=== PATIENT | male | born 1945 | race Caucasian/White ===

== ENCOUNTER → 2016-09-15 | Outpatient (CLI) | payer BC ==
[~2016-09-15] MED LIST: METO50TA16 PO; MULT-506 PO; SIMV20TA2 PO; WHEAPOW13 PO
== END | disposition home or self-care (01) ==
LOC: C.LABBC 07:59
PROVIDERS: ATTEND Nurse Practitioner Family
DX: C61 Malignant neoplasm of prostate (principal)

== ENCOUNTER → 2017-01-05 | Outpatient (CLI) | payer BC ==
[2017-01-05 10:07] LABS: BASO ABS # 0.07 K/uL (0-0.2); COMPLETE YES; EOS % 4.8 %; IG% 0.1 %; LYMPH % 26.8 %; LYMPH ABS # 1.86 K/uL (1.2-3.4); MEAN CELL VOLUME 101.1 fL (80-100); MEAN CORPUSCULAR HEMOGLOBIN 33.5 pg (25-34); MEAN CORPUSCULAR HGB CONC 33.1 g/dl (32-36); MEAN PLATELET VOLUME 11.8 fL (7.4-10.4); MONO % 5.8 %; NEUT % 61.5 %; PLATELET COUNT 192 K/uL (130-400); RED BLOOD COUNT 4.75 M/uL (4.7-6.1); WHITE BLOOD COUNT 6.94 K/uL (4.8-10.8)
[2017-01-05 10:21] LABS: ALT/SGPT 25 U/L (12-78); BLOOD UREA NITROGEN 18 mg/dl (7-18); CARBON DIOXIDE 29 mmol/L (21-32); CHLORIDE 104 mmol/L (98-107); CHOLESTEROL 116 mg/dl (0-200); GLUCOSE 90 mg/dl (70-99); POTASSIUM 3.9 mmol/L (3.5-5.1); SODIUM 139 mmol/L (136-145)
[2017-01-05 10:32] LABS: ALB/GLOB RATIO 0.9 (0.9-2); ALKALINE PHOSPHATASE 74 U/L (45-117); AST/SGOT 21 U/L (15-37); CHOLESTEROL/HDL RATIO 3.7; HDL CHOLESTEROL 31 mg/dl; LDL CHOLESTEROL CALCULATED 58 mg/dl; TRIGLYCERIDES 137 mg/dl (0-150); VERY LOW DENSITY LIPOPROT CALC 27 mg/dl
== END | disposition home or self-care (01) ==
LOC: C.LAB1850 09:08
PROVIDERS: ATTEND Internal Medicine Pulmonary Disease
DX: Z00.00 Encounter for general adult medical examination without abnormal findings (principal); E78.5 Hyperlipidemia, unspecified; C61 Malignant neoplasm of prostate; C44.91 Basal cell carcinoma of skin, unspecified

== ENCOUNTER → 2017-01-19 | Outpatient (CLI) | payer BC | END | disposition home or self-care (01) | LOC: C.RDSM 15:21 | PROVIDERS: ATTEND Family Medicine Sports Medicine | DX: M54.5 Low back pain (principal) ==

== ENCOUNTER → 2017-09-08 | Outpatient (CLI) | payer BC | END | disposition home or self-care (01) | LOC: C.LABBC 07:32 | PROVIDERS: ATTEND Urology | DX: R39.9 Unspecified symptoms and signs involving the genitourinary system (principal) ==

== ENCOUNTER 2023-02-23 09:58 | Observation (INO) ==
--- NOTE | 2023-02-23 10:43 | Emergency Department Note ---
Impression & Plan Loss of vision ED Provider Note NAME: LADY OSCAR AGE: 77 SEX: M : 1945 ARRIVES VIA: Walk-In INFORMANT: Patient, ED PROVIDER(S): Mery Escalona MD CHIEF COMPLAINT: Vision loss HPI: This is a 77-year-old male history of hypertension, hyperlipidemia presenting for right eye vision loss. Patient states he went to his network technical analyst today for vision loss. He notes this happened yesterday at some point throughout the night. He notes he sees part of his vision is lost on the right high only. He went to the network technical analyst who dilated his eye and thinks that there is a central retinal artery occlusion. He was sent here for further evaluation for stroke. Patient has no current headache, nausea, vomiting, dysarthria, facial asymmetry, upper or lower extremity weakness, he mention stable gait. ROS: See above HPI for pertinent positives & negatives. A total of 10 systems reviewed and were otherwise negative. PAST MEDICAL HISTORY: See Below PAST SURGICAL HISTORY: See Below FAMILY HISTORY: See Below SOCIAL HISTORY: See Below HOME MEDICATIONS: See Below ALLERGIES: See Below VITALS: See Below PHYSICAL EXAMINATION: General: resting comfortably in no acute distress Head: Normocephalic and atraumatic Eyes: Normal inspection, extraocular muscles intact, no conjunctival pallor Ear, nose, throat: Normal external exam Neck: Normal range of motion Respiratory: Patient is in no respiratory distress, lungs clear to auscultation bilaterally Cardiovascular: RRR without murmur appreciated GI: soft, nontender, no guarding or rebound Extremities: pulses intact with good cap refills, no LE pitting edema or calf tenderness Neuro: Awake, alert, conversant, no focal deficits, cranial 2-12 intact, right eye is dilated Skin: Warm, dry, and intact MEDICAL DECISION MAKING: This is a 77-year-old male history of hypertension, hyperlipidemia presenting for right eye vision loss. Ophthalmology sent in for central artery occlusion. Will complete stroke work-up with CTA of the head/neck. We will get basic blood work as well. Patient's vital signs reviewed, slightly hypertensive, slightly bradycardic but otherwise within normal limits. EKG is reviewed as below. Patient CT CTA head and neck revealed no acute abnormalities. We will proceed to an MRI in inpatient setting for stroke work-up. Based on patient's length of symptoms, not a tPA candidate. Patient admitted for further stroke work-up at this time. Lab work reviewed without any significant normalities. CT Triage Nursing notes reviewed. Prior medical records reviewed Vital Signs: reviewed and remarkable for no significant abnormalities Differential diagnosis: Central retinal artery occlusion, central venous occlusion, stroke, TIA ER treatment provided: See below Diagnostics interpreted by me: ECG: ECG reviewed by me with normal sinus rhythm, rate of 62, normal axis, normal IA, normal QRS, normal QTc, no ST segment elevations consistent with STEMI criteria Cardiac Monitoring: An order was placed for continuous cardiac monitoring. The monitor shows a rate of 54 with sinus bradycardic rhythm. Laboratory studies: As stated above and show below. Imaging studies: See below. Radiographic imaging was reviewed by myself Consultation(s): None Past Med/Surg History Medical History Diverticulosis H/O Mohs micrographic surgery for skin cancer Palpitation Septicemia Surgical History H/O colonoscopy (~2016) H/O hernia repair S/P tonsillectomy and adenoidectomy Family History Mother Hypertension Father Bladder cancer FH: kidney cancer Social History Smoking Status: Never smoker Hx Alcohol Use: Yes Preferred Language: [place] marital status: Current Living Situation: Spouse current occupational status: retired Feels Safe at Home: Yes Allergies Allergies Allergy/AdvReac Type Severity Reaction Status Date / Time No Known Allergies Allergy Verified 01/07/23 12:56 Home Meds Home Medications Medication Instructions Recorded Confirmed diphenhydramine HCl 25 mg capsule 50 mg PO DIRECTED PRN Allergy 06/23/20 02/23/23 (Benadryl) Symptoms fluorouracil 5 % topical cream 1 applic topical DIRECTED PRN 06/23/20 02/23/23 (Efudex) Other multivitamin 1 tab PO DAILY 06/23/20 02/23/23 Previous Rx's Medication Instructions Recorded metoprolol succinate 50 mg 50 mg PO DAILY #90 tabs 01/07/23 tablet,extended release 24 hr simvastatin 20 mg tablet 20 mg PO QPM #90 tabs 01/07/23 Results & Data (ED) Vital Signs Vital Signs - 24 hr 02/23/23 10:20 02/23/23 11:23 02/23/23 11:23 Temperature 36.2 C L Temperature Source Temporal Artery Scan Pulse Rate 62 61 Pulse Rhythm Regular Respiratory Rate 16 14 Respiratory Effort / Characteristics Non-Labored Respiratory Depth Normal Blood Pressure 154/94 H Blood Pressure Mean 114 Pulse Oximetry 98 98 Oxygen Delivery Method Room Air Room Air Room Air Sepsis Recent Fever Within 48 Hours No Sepsis New/Unexplained Change in Mental Status N/A Sepsis Action Taken by Nursing No Action Required 02/23/23 11:43 02/23/23 12:00 02/23/23 11:21 Temperature Temperature Source Pulse Rate 60 58 L 58 L Pulse Rhythm Respiratory Rate 17 12 Respiratory Effort / Characteristics Respiratory Depth Blood Pressure 135/87 129/81 Blood Pressure Mean 103 97 Pulse Oximetry 96 97 Oxygen Delivery Method Room Air Room Air Sepsis Recent Fever Within 48 Hours Sepsis New/Unexplained Change in Mental Status Sepsis Action Taken by Nursing Laboratory Data 02/23/23 11:11 02/23/23 11:11 Lab Results 02/23/23 02/23/23 02/23/23 Range/Units 11:11 11:11 11:11 WBC 8.71 (4.8-10.8) K/ul RBC 4.57 L (4.70-6.10) M/uL Hgb 16.0 (14.0-18.0) g/dl POC Hgb (14.0-18.0) g/dl Hct 46.5 (42.0-52.0) % POC Hct (42-52) % MCV 101.8 H (80.0-100.0) fL MCH 35.0 H (25.0-34.0) pg MCHC 34.4 (32.0-36.0) g/dL RDW Std Deviation 44.6 (36.4-46.3) fL RDW Coeff of Dana 11.9 (11.5-14.5) % Plt Count 241 (130-400) K/uL MPV 11.1 (9.4-12.4) fL PT 10.8 (9.0-12.0) Seconds INR 1.0 (0.9-1.1) APTT 27.5 (21.0-31.0) Seconds PTT Ratio 1.0 POC Sodium (135-144) mmol/L Sodium 137 (136-145) mmol/L POC Potassium (3.3-5.0) mmol/L Potassium 4.1 (3.5-5.1) mmol/L POC Chloride (101-112) mmol/L Chloride 102 (98-107) mmol/L Carbon Dioxide 30 (21-32) mmol/L POC Total CO2 (24-31) mmol/L Anion Gap 5 (3-11) POC Anion Gap (16-25) mmol/L POC BUN (7-18) mg/dl BUN 14 (6-23) mg/dl Creatinine 1.09 (0.6-1.4) mg/dl POC Creatinine (0.6-1.3) mg/dl Est Cr Clr Drug Dosing 68.1 ml/min Est GFR ( Amer) 76.5 ml/min Est GFR (Non-Af Amer) 66.0 ml/min BUN/Creatinine Ratio 12.8 (10-20) Glucose 104 H (70-99(Fasting)) mg/dl POC Glucose (other) Calcium 9.9 (8.6-10.3) mg/dl POC Ioniz Calcium Kaye (1.12-1.32) mmol/l Magnesium 2.3 (1.7-2.4) mg/dl Total Bilirubin 0.8 (0.2-1.0) mg/dl AST 21 (13-39) U/L ALT 13 (7-52) U/L Alkaline Phosphatase 78 (34-104) U/L Total Protein 7.8 (6.0-8.3) gm/dl Albumin 4.1 (3.4-5.0) gm/dl Globulin 3.7 (2.5-4.0) gm/dl Albumin/Globulin Ratio 1.1 (0.9-2) 02/23/23 Range/Units 11:22 WBC (4.8-10.8) K/ul RBC (4.70-6.10) M/uL Hgb (14.0-18.0) g/dl POC Hgb 16.3 (14.0-18.0) g/dl Hct (42.0-52.0) % POC Hct 48 (42-52) % MCV (80.0-100.0) fL MCH (25.0-34.0) pg MCHC (32.0-36.0) g/dL RDW Std Deviation (36.4-46.3) fL RDW Coeff of Dana (11.5-14.5) % Plt Count (130-400) K/uL MPV (9.4-12.4) fL PT (9.0-12.0) Seconds INR (0.9-1.1) APTT (21.0-31.0) Seconds PTT Ratio POC Sodium 139 (135-144) mmol/L Sodium (136-145) mmol/L POC Potassium 4.1 (3.3-5.0) mmol/L Potassium (3.5-5.1) mmol/L POC Chloride 100 L (101-112) mmol/L Chloride (98-107) mmol/L Carbon Dioxide (21-32) mmol/L POC Total CO2 29 (24-31) mmol/L Anion Gap (3-11) POC Anion Gap 15.0 L (16-25) mmol/L POC BUN 15 (7-18) mg/dl BUN (6-23) mg/dl Creatinine (0.6-1.4) mg/dl POC Creatinine 1.0 (0.6-1.3) mg/dl Est Cr Clr Drug Dosing ml/min Est GFR ( Amer) ml/min Est GFR (Non-Af Amer) ml/min BUN/Creatinine Ratio (10-20) Glucose (70-99(Fasting)) mg/dl POC Glucose (other) TNP Calcium (8.6-10.3) mg/dl POC Ioniz Calcium Kaye 1.18 (1.12-1.32) mmol/l Magnesium (1.7-2.4) mg/dl Total Bilirubin (0.2-1.0) mg/dl AST (13-39) U/L ALT (7-52) U/L Alkaline Phosphatase (34-104) U/L Total Protein (6.0-8.3) gm/dl Albumin (3.4-5.0) gm/dl Globulin (2.5-4.0) gm/dl Albumin/Globulin Ratio (0.9-2) Administered Medications Discontinued Medications Aspirin (Aspirin 81 Mg Ectab) 81 mg PO NOW STA Stop: 02/23/23 13:45 Last Admin: 02/23/23 15:07 Dose: 81 mg Documented By: CLARA Ioversol (Optiray 320 500ml) 115 ml IV ONCE ONE Stop: 02/23/23 11:31 Last Admin: 02/23/23 11:30 Dose: 115 ml Documented By: SANDEE Imaging Data Radiologist's Impression: Chest X-Ray 02/23/23 10:17 XR chest 1V portable HISTORY: 77 years-old Male stroke alert acute stroke like symptoms COMPARISON: 03/30/2012 TECHNIQUE: AP view of the chest FINDINGS: Cardiomediastinal and hilar silhouettes are within normal limits. No pneumothorax, pleural effusion, airspace consolidation or pulmonary edema. The bones appear grossly intact. IMPRESSION: No acute process. ACT 112: Negative or not required by law. The above report was generated using voice recognition software. It may contain grammatical, syntax or spelling errors. Electronically signed by: Juan Velasquez M.D. 02/23/2023 11:[address] 02/23/23 10:17 CT head/brain wo con CLINICAL HISTORY: 77 years-old Male with Neuro deficit, acute, stroke suspected. Acute stroke like symptoms TECHNIQUE: Multiple axial CT images of the head were obtained without contrast. A dose lowering technique was utilized adhering to the principles of ALARA. COMPARISON: Brain MRI 03/31/2012 FINDINGS: No acute intracranial hemorrhage, midline shift, intracranial mass, hydrocephalus, territorial ischemia or abnormal extra-axial collection. Involutional changes with suggestion of mild chronic microvascular ischemic disease. The calvarium is intact. The paranasal sinuses, mastoid air cells, and middle ear cavities are clear. IMPRESSION: No acute intracranial abnormality. ACT 112: Negative or not required by law. The above report was generated using voice recognition software. It may contain grammatical, syntax or spelling errors. Electronically signed by: Juan Velasquez M.D. 02/23/2023 12:01 PM Head CTA 02/23/23 10:17 CTA ANGIOGRAPHY OF THE HEAD CLINICAL HISTORY: Stroke, retinal artery occlusion COMPARISON STUDY: MRA of the head March 31, 2012. TECHNIQUE: Helical axial images of the head were obtained following uneventful intravenous administration of 115 cc of Optiray. Sagittal and coronal reconstructions were viewed as well as maximal intensity projections on an independent 3-D workstation. Automated exposure control was utilized for the study. A dose lowering technique was utilized adhering to the principles of ALARA. FINDINGS: Please note that the head CT will be reported separately. The bi lateral M1, M2, A1 and A2 segments are patent. There is mild plaque within the right cavernous carotid without stenosis. There is no central vessel occlusion within the anterior circulation. No central vessel occlusion within the posterior circulation is noted. No stenoses are identified. There is no intracranial aneurysm. No dissection within the intracranial vessels is identified. IMPRESSION: No large vessel occlusion. No intracranial aneurysm. ACT 112: Negative or not required by law. Electronically signed by: Jordin Batres M.D. 02/23/2023 11:52 AM Neck CTA 02/23/23 10:17 CT angio neck with con CLINICAL HISTORY: Stroke, retinal artery occlusion TECHNIQUE: CT angiography of the neck was performed following intravenous administration of iodinated contrast. Coronal and sagittal MIPS were obtained from the axial data set and were submitted for review. Automated dose lowering techniques and/or adjustment according to patient size were utilized for this examination. All measurements were calculated based on NASCET criteria. CT DOSE: 1226.92 mGy.cm Comparison: None available at the time of this dictation. FINDINGS: Lungs and soft tissues are unremarkable. CTA Neck: The left common carotid artery shares common origin with the innominate artery. There is no significant atherosclerotic plaque in the aortic arch or the origins of the innominate, left common carotid, and left subclavian arteries. The common carotid, external carotid, cervical segments of the internal carotid arteries, and the cervical segments of the vertebral arteries are patent without hemodynamically significant stenosis. The left vertebral artery is dominant. IMPRESSION: No occlusion, hemodynamically significant stenosis, or dissection in the major cervical arteries. Assessment of stenosis of the internal carotid arteries is based on NASCET criteria. ACT 112: Negative or not required by law. Electronically signed by: Jessee Curtis M.D. 02/23/2023 12:06 PM Discharge Plan Visit Data Chief Complaint: Eye Problems Stated Complaint: eye test ED Provider: Mery Escalona Discharge Problem: Loss of vision Patient Disposition: Admitted As Inpatient Discharge Instructions Interventions: ED Discharge Assessment Last Done: 02/23/23 14:24
--- NOTE | 2023-02-23 11:07 | XRay Report ---
XR chest 1V portable HISTORY: 77 years-old Male stroke alert acute stroke like symptoms COMPARISON: 03/30/2012 TECHNIQUE: AP view of the chest FINDINGS: Cardiomediastinal and hilar silhouettes are within normal limits. No pneumothorax, pleural effusion, airspace consolidation or pulmonary edema. The bones appear grossly intact. IMPRESSION: No acute process. ACT 112: Negative or not required by law. The above report was generated using voice recognition software. It may contain grammatical, syntax o r spelling errors. Electronically signed by: Juan Velasquez M.D. 02/23/2023 11:06 AM
[2023-02-23] MEDS ORDERED: OPTIRAY 320 500ml IV ONE (11:30)
[2023-02-23 11:35] LABS: Hematocrit (blood only) 46.5 % (42.0-52.0); Mean Corpuscular Hgb Conc 34.4 g/dL (32.0-36.0); Mean Corpuscular Volume 101.8 fL (80.0-100.0); Mean Platelet Volume 11.1 fL (9.4-12.4); Platelet Count 241 K/uL (130-400); RDW Coefficient of Variation 11.9 % (11.5-14.5); RDW Standard Deviation 44.6 fL (36.4-46.3); Red Blood Count 4.57 M/uL (4.70-6.10); White Blood Count 8.71 K/ul (4.8-10.8)
[2023-02-23 11:43] LABS: iSTAT Blood Urea Nitrogen 15 mg/dl (7-18); iSTAT Carbon Dioxide 29 mmol/L (24-31); iSTAT Chloride 100 mmol/L (101-112); iSTAT Hematocrit 48 % (42-52); iSTAT Hemoglobin 16.3 g/dl (14.0-18.0); iSTAT Ionized Calcium 1.18 mmol/l (1.12-1.32); iSTAT Potassium 4.1 mmol/L (3.3-5.0); iSTAT Sodium 139 mmol/L (135-144)
--- NOTE | 2023-02-23 11:55 | CT Scan Report ---
CTA ANGIOGRAPHY OF THE HEAD CLINICAL HISTORY: Stroke, retinal artery occlusion COMPARISON STUDY: MRA of the head March 31, 2012. TECHNIQUE: Helical axial images of the head were obtained following uneventful intravenous administr ation of 115 cc of Optiray. Sagittal and coronal reconstructions were viewed as well as maximal inten sity projections on an independent 3-D workstation. Automated exposure control was utilized for the study. A dose lowering technique was utilized adhering to the principles of ALARA. FINDINGS: Please note that the head CT will be reported separately. The bilateral M1, M2, A1 and A2 s egments are patent. There is mild plaque within the right cavernous carotid without stenosis. There i s no central vessel occlusion within the anterior circulation. No central vessel occlusion within the posterior circulation is noted. No stenoses are identified. There is no intracranial aneurysm. No di ssection within the intracranial vessels is identified. IMPRESSION: No large vessel occlusion. No intracranial aneurysm. ACT 112: Negative or not required by law. Electronically signed by: Jordin Batres M.D. 02/23/2023 11:52 AM
[2023-02-23 12:02] LABS: Albumin Globulin Ratio 1.1 (0.9-2); Albumin Level 4.1 gm/dl (3.4-5.0); BUN Creatinine Ratio 12.8 (10-20); Bilirubin,Total 0.8 mg/dl (0.2-1.0); Calcium 9.9 mg/dl (8.6-10.3); Creatinine Clr Calc Pharmacy 68.1 ml/min; Est GFR (African American) 76.5 ml/min; Globulin 3.7 gm/dl (2.5-4.0); Magnesium 2.3 mg/dl (1.7-2.4); Potassium 4.1 mmol/L (3.5-5.1); Total Protein 7.8 gm/dl (6.0-8.3)
--- NOTE | 2023-02-23 12:03 | CT Scan Report ---
CT head/brain wo con CLINICAL HISTORY: 77 years-old Male with Neuro deficit, acute, stroke suspected. Acute stroke like s ymptoms TECHNIQUE: Multiple axial CT images of the head were obtained without contrast. A dose lowering tech nique was utilized adhering to the principles of ALARA. COMPARISON: Brain MRI 03/31/2012 FINDINGS: No acute intracranial hemorrhage, midline shift, intracranial mass, hydrocephalus, territorial ischem ia or abnormal extra-axial collection. Involutional changes with suggestion of mild chronic microvasc ular ischemic disease. The calvarium is intact. The paranasal sinuses, mastoid air cells, and middle ear cavities are clear . IMPRESSION: No acute intracranial abnormality. ACT 112: Negative or not required by law. The above report was generated using voice recognition software. It may contain grammatical, syntax o r spelling errors. Electronically signed by: Juan Velasquez M.D. 02/23/2023 12:01 PM
[2023-02-23 12:09] LABS: Partial Thromboplastin Time 27.5 Seconds (21.0-31.0); Prothrombin Time 10.8 Seconds (9.0-12.0)
--- NOTE | 2023-02-23 12:09 | CT Scan Report ---
CT angio neck with con CLINICAL HISTORY: Stroke, retinal artery occlusion TECHNIQUE: CT angiography of the neck was performed following intravenous administration of iodinated contrast. Coronal and sagittal MIPS were obtained from the axial data set and were submitted for rev iew. Automated dose lowering techniques and/or adjustment according to patient size were utilized fo r this examination. All measurements were calculated based on NASCET criteria. CT DOSE: 1226.92 mGy.cm Comparison: None available at the time of this dictation. FINDINGS: Lungs and soft tissues are unremarkable. CTA Neck: The left common carotid artery shares common origin with the innominate artery. There is n o significant atherosclerotic plaque in the aortic arch or the origins of the innominate, left common carotid, and left subclavian arteries. The common carotid, external carotid, cervical segments of t he internal carotid arteries, and the cervical segments of the vertebral arteries are patent without hemodynamically significant stenosis. The left vertebral artery is dominant. IMPRESSION: No occlusion, hemodynamically significant stenosis, or dissection in the major cervical arteries. Assessment of stenosis of the internal carotid arteries is based on NASCET criteria. ACT 112: Negative or not required by law. Electronically signed by: Jessee Curtis M.D. 02/23/2023 12:06 PM
--- NOTE | 2023-02-23 12:47 | History & Physical Report ---
Date of Service February 23, 2023 Assessment & Plan (1) Blurred vision, right eye: Plan: Clinically, patient with right lower visual field blurriness since 0800 on 02/22 He denies R eye pain/discomfort Patient saw his production truck driver (Dr. Barrios) the morning of 02/23, who examined him and recommended he come to the ED due to high suspicion for retinal artery occlusion Symptoms started >24h ago; thus, patient outside the window for thrombolytic therapy on arrival Per ED doctor (Dr. Escalona), ocular massage did not alleviate symptoms No prior history of stroke or eyes/vascular issues Head and Neck CT/CTA did not reveal acute processes Brain MRI w/o ordered EKG NSR No history of A-fib, per pt; echo ordered Continuous telemetry monitoring Aspirin 81 mg daily Discussed the need for continuous antiplatelet therapy upon discharge Fall precautions Continue neuro-checks q4h for now Speech therapy eval placed as patient reports ongoing issues with speech and thought processes x1 year A.m. CBC, BMP, lipid panel, A1c (2) Hypertension: Plan: BP 154/94 on admission Continue metoprolol (3) Hyperlipidemia: Plan: Continue simvastatin Lipid panel ordered Plan Disposition: Obs -admit to med/telemetry Full code Regular diet VTE PPx: Lovenox 40mg SQ daily History of Present Illness Chief Complaint: Right eye blurriness x 1 day Primary Care Provider: Wse Olivia MD Ariel is a 77yo male with PMH of HTN, HLD, and prostate cancer. He presents for worsening right eye blurriness, specifically in the right lower visual field, since 0800 yesterday morning. Blurriness has not changed over the past 24 hours. Patient saw his production truck driver (Dr. Barrios) this morning, who dilated his R eye in the office; per patient, Dr. Felipe looked in the back of the eye and determined that something "broke off"; suspected retinal artery occlusion. No PMHx of CVA, CT, T2DM, A-fib, ENT surgeries, or vision loss. Hx of occasional headaches that are sinus / allergy-related; for which the patient takes 2 Excedrin tabs and symptoms usually improve in 15-20 minutes; chronic; last headache 7 days ago and was mild. Patient does not wear contact lenses or prescription glasses; occasionally uses reading glasses. No hx of recent head trauma, eye redness, or eye pain. He reports that he took his morning medications. No recent change in meds. He also reports using systane drops (artifical tears) daily for dry eye. BP mildly elevated at 154/94 on arrival; vitals otherwise stable. ED course: Ioversol 115mL IV Patient endorses R eye blurriness, which he characterizes as "ghosting" in the lower half of his eye. Patient denies recent fever, infections, HALL, right eye pain, right eye discomfort, right eye discharge, change in smell/taste/hearing, slurred speech, facial droop, dizziness, vertigo, CP, SOB, abdominal pain, N/V/D, or numbness or tingling in the extremities. Please see Dr. Good's attestation for any changes in treatment plan. Allergies Allergy/AdvReac Type Severity Reaction Status Date / Time No Known Allergies Allergy Verified 01/07/23 12:56 Home Medications Medication Instructions Recorded Confirmed Type diphenhydramine HCl 25 mg capsule 50 mg PO DIRECTED PRN Allergy 06/23/20 02/23/23 History (Benadryl) Symptoms fluorouracil 5 % topical cream 1 applic topical DIRECTED PRN 06/23/20 02/23/23 History (Efudex) Other multivitamin 1 tab PO DAILY 06/23/20 02/23/23 History metoprolol succinate 50 mg 50 mg PO DAILY #90 tabs 01/07/23 02/23/23 Rx tablet,extended release 24 hr simvastatin 20 mg tablet 20 mg PO QPM #90 tabs 01/07/23 02/23/23 Rx Past Med/Surg History Medical History Diverticulosis H/O Mohs micrographic surgery for skin cancer Palpitation Septicemia Surgical History H/O colonoscopy (~2016) H/O hernia repair S/P tonsillectomy and adenoidectomy Family History Mother Hypertension Father Bladder cancer FH: kidney cancer Social History Smoking Status: Never smoker Hx Alcohol Use: Yes Preferred Language: Com[place] marital status: Current Living Situation: Spouse current occupational status: retired Feels Safe at Home: Yes Review of Systems Review of Systems: See HPI above Physical Exam Physical Exam: General: patient appears in no acute distress; appears stated age; well- nourished; cooperative HEENT: normocephalic, atraumatic; no scleral icterus; moist mucus membrane; trachea midline; hearing grossly intact assessed via finger rub test Right eye: Pupil dilated; schlera white; minimally reactive to light; EOMs grossly intact; negative for nystagmus; negative for FBs; negative for erythema / conjunctivitis; no discrete field cut noted on visual murillo by confrontation Left eye: Schlera white; PERRLA with EOMs intact; negative for FBs; negative for erythema / conjunctivitis Skin: warm, dry without signs of tenting; no cyanosis; no rashes or lesions noted Cardiac: Chest wall nontender to palpation; regular rhythm; no new murmurs noted Pulm: no acute respiratory distress; symmetrical chest expansion; clear breath sounds across all lung murillo without adventitious sounds Abdominal: Soft, nontender to palpation; BS present; no ascites; no distention MSK: no tics or fasciculations; no edema noted in the LEs b/l; pulses intact and symmetrical at radial, DP, and PT; patch setter strength +5/5 b/l Neuro: A&Ox3; no tremors; no focal defects; sensation grossly intact on the face, extremities; patient demonstrates ability to wiggle his toes Results & Data Results & Data Vital Signs (Past 12 Hours) Vital Signs Temp Pulse Resp BP Pulse Ox O2 Del Method 02/23/23 12:00 58 L 12 129/81 97 Room Air 02/23/23 11:43 60 17 135/87 96 Room Air 02/23/23 11:23 Room Air 02/23/23 11:23 61 14 98 Room Air 02/23/23 10:20 36.2 C L 62 16 154/94 H 98 Room Air Laboratory Results Abnormal lab results 02/23/23 02/23/23 02/23/23 Range/Units 11:11 11:11 11:22 RBC 4.57 L (4.70-6.10) M/uL MCV 101.8 H (80.0-100.0) fL MCH 35.0 H (25.0-34.0) pg POC Chloride 100 L (101-112) mmol/L POC Anion Gap 15.0 L (16-25) mmol/L Glucose 104 H (70-99(Fasting)) mg/dl Diagnostic Findings Chest X-Ray 02/23/23 10:17 XR chest 1V portable HISTORY: 77 years-old Male stroke alert acute stroke like symptoms COMPARISON: 03/30/2012 TECHNIQUE: AP view of the chest FINDINGS: Cardiomediastinal and hilar silhouettes are within normal limits. No pneumothorax, pleural effusion, airspace consolidation or pulmonary edema. The bones appear grossly intact. IMPRESSION: No acute process. ACT 112: Negative or not required by law. The above report was generated using voice recognition software. It may contain grammatical, syntax or spelling errors. Electronically signed by: Juan Velasquez M.D. 02/23/2023 11:[address] 02/23/23 10:17 CT head/brain wo con CLINICAL HISTORY: 77 years-old Male with Neuro deficit, acute, stroke suspected. Acute stroke like symptoms TECHNIQUE: Multiple axial CT images of the head were obtained without contrast. A dose lowering technique was utilized adhering to the principles of ALARA. COMPARISON: Brain MRI 03/31/2012 FINDINGS: No acute intracranial hemorrhage, midline shift, intracranial mass, hydrocephalus, territorial ischemia or abnormal extra-axial collection. Involutional changes with suggestion of mild chronic microvascular ischemic disease. The calvarium is intact. The paranasal sinuses, mastoid air cells, and middle ear cavities are clear. IMPRESSION: No acute intracranial abnormality. ACT 112: Negative or not required by law. The above report was generated using voice recognition software. It may contain grammatical, syntax or spelling errors. Electronically signed by: Juan Velasquez M.D. 02/23/2023 12:01 PM Head CTA 02/23/23 10:17 CTA ANGIOGRAPHY OF THE HEAD CLINICAL HISTORY: Stroke, retinal artery occlusion COMPARISON STUDY: MRA of the head March 31, 2012. TECHNIQUE: Helical axial images of the head were obtained following uneventful intravenous administration of 115 cc of Optiray. Sagittal and coronal reconstructions were viewed as well as maximal intensity projections on an independent 3-D workstation. Automated exposure control was utilized for the study. A dose lowering technique was utilized adhering to the principles of ALARA. FINDINGS: Please note that the head CT will be reported separately. The bilateral M1, M2, A1 and A2 segments are patent. There is mild plaque within the right cavernous carotid without stenosis. There is no central vessel occlusion within the anterior circulation. No central vessel occlusion within the posterior circulation is noted. No stenoses are identified. There is no intracranial aneurysm. No dissection within the intracranial vessels is identified. IMPRESSION: No large vessel occlusion. No intracranial aneurysm. ACT 112: Negative or not required by law. Electronically signed by: Jordin Batres M.D. 02/23/2023 11:52 AM Neck CTA 02/23/23 10:17 CT angio neck with con CLINICAL HISTORY: Stroke, retinal artery occlusion TECHNIQUE: CT angiography of the neck was performed following intravenous administration of iodinated contrast. Coronal and sagittal MIPS were obtained from the axial data set and were submitted for review. Automated dose lowering techniques and/or adjustment according to patient size were utilized for this examination. All measurements were calculated based on NASCET criteria. CT DOSE: 1226.92 mGy.cm Comparison: None available at the time of this dictation. FINDINGS: Lungs and soft tissues are unremarkable. CTA Neck: The left common carotid artery shares common origin with the innominate artery. There is no significant atherosclerotic plaque in the aortic arch or the origins of the innominate, left common carotid, and left subclavian arteries. The common carotid, external carotid, cervical segments of the internal carotid arteries, and the cervical segments of the vertebral arteries are patent without hemodynamically significant stenosis. The left vertebral artery is dominant. IMPRESSION: No occlusion, hemodynamically significant stenosis, or dissection in the major cervical arteries. Assessment of stenosis of the internal carotid arteries is based on NASCET criteria. ACT 112: Negative or not required by law. Electronically signed by: Jessee Curtis M.D. 02/23/2023 12:06 PM Code Status & VTE Plan Code Status Full code Supervising Physician Co-Signing Physician Notes Patient seen and examined, chart reviewed, case discussed with PAUL Trent PA-C and I agree with the assessment and plan as above except as otherwise noted Labs and images reviewed 77-year-old male who had a right inferior visual field acuity decrease yesterday around 8 AM which has persisted through yesterday and today. Patient had a dilated eye exam with ophthalmology, had a suspected branch retinal artery occlusion. Patient did undergo ocular massage without improvement. No prior stroke pathology. CT of the head is normal. No obvious field cuts to confrontation at time of admitting assessment, right pupil is dilated in the ER following dilated eye exam. No focal strength deficits, no other focal neurologic deficits. Agree with admission for treatment of BRA O and stroke eval. Patient will have complete stroke work-up including MRI and echo. Recommend risk factor management including addition of aspirin daily and atorvastatin 40 mg daily (was previously on simvastatin 20). Lipid panel pending. He was outside of the window for TNKase. PG Care Time/CCT Total # of Minutes Spent Total Time Spent with Patient: Total time spent is greater than 50% in coordination of care (as documented) at patient's floor/unit and/or counseling patient: C[place] [address] INT INP/OBS CARE 2/55MIN Patient Type Established Medical Decision Making Moderate Complexity Diagnoses Blurred vision, right eye H53.8 Hypertension I10 Hyperlipidemia E78.5
[2023-02-23] MEDS ORDERED: ASPIRIN 81 MG ECTAB PO STA (13:44)
[2023-02-23] MEDS ORDERED: PHARMACIST DISCHARGE MED REC CONSULT PRN (14:25)
[2023-02-23] MEDS ORDERED: FLUOROURACIL 5% TOP PRN (14:25)
[2023-02-23] MEDS ORDERED: ACETAMINOPHEN 325 MG TAB PO PRN (14:25)
[2023-02-23] MEDS ORDERED: diphenhydrAMINE Capsule 25 MG CAP PO PRN (14:29)
--- NOTE | 2023-02-23 17:48 | Magnetic Resonance Report ---
MR brain wo con HISTORY: 77 years-old Male stroke rule-out; possible ret artery occlusion . Strokelike symptoms COMPARISON: Head CT of same day TECHNIQUE: Multisequence MRI of the brain was obtained without the use of IV contrast. FINDINGS: There is a 8 mm focus of restricted diffusion within the subcortical right frontal lobe, image 16 ser ies 4 with intermediate to low signal on ADC map and increased T2/STIR signal. No acute or subacute t erritorial infarct. Midline structures are unremarkable. There is no acute intracranial hemorrhage, midline shift, abnormal extra-axial collection, encephalit is or intra-axial mass. No pathologic loosening artifact. Involutional changes with mild scattered T2 /FLAIR hyperintense foci of white matter. Cerebral venous sinuses and major arterial flow voids are patent. Skull, orbits and soft tissues are unremarkable. IMPRESSION: 1. Acute to subacute appearing right frontal lobe subcentimeter lacunar infarct. 2. Mild chronic microvascular ischemic disease. ACT 112: Negative or not required by law. The above report was generated using voice recognition software. It may contain grammatical, syntax o r spelling errors. Electronically signed by: Juan Velasquez M.D. 02/23/2023 5:46 PM
[2023-02-23] MEDS ORDERED: ENOXAPARIN INJ 40 MG/0.4 ML SYR SQ SCH (20:00)
[2023-02-23] MEDS ORDERED: SIMVASTATIN 20 MG TAB PO SCH (21:00)
--- NOTE | 2023-02-24 07:31 | Electrocardiogram Report ---
Test Reason : Blood Pressure : / mmHG Vent. Rate : 062 BPM Atrial Rate : 062 BPM P-R Int : 136 ms QRS Dur : 082 ms QT Int : 412 ms P-R-T Axes : 046 014 033 degrees QTc Int : 418 ms Poor data quality, interpretation may be adversely affected Normal sinus rhythm Normal ECG When compared with ECG of 31-MAR-2012 06:48, No significant change was found Confirmed by Zac Jackman ([id number]) on 02/24/2023 7:31:10 AM Referred By: REFERRED SELF Confirmed By:Zac Jackman
[2023-02-24 08:08] LABS: Basophils # (auto) 0.05 K/uL (0.00-0.20); Basophils % (auto) 0.7 %; Eosinophils # (auto) 0.24 K/uL (0.00-0.50); Eosinophils % (auto) 3.2 %; Hematocrit (blood only) 41.3 % (42.0-52.0); Hemoglobin 14.4 g/dl (14.0-18.0); Immature Granulocytes # (auto) 0.01 K/uL (0.01-0.20); Immature Granulocytes % (auto) 0.1 %; Lymphocytes % (auto) 21.5 %; Mean Corpuscular Hemoglobin 34.4 pg (25.0-34.0); Mean Corpuscular Hgb Conc 34.9 g/dL (32.0-36.0); Mean Corpuscular Volume 98.8 fL (80.0-100.0); Mean Platelet Volume 10.9 fL (9.4-12.4); Monocytes # (auto) 0.41 K/uL (0.11-0.59); Monocytes % (auto) 5.5 %; Neutrophils # (auto) 5.13 K/uL (1.40-6.50); Platelet Count 199 K/uL (130-400); RDW Coefficient of Variation 11.6 % (11.5-14.5); RDW Standard Deviation 42.5 fL (36.4-46.3); Red Blood Count 4.18 M/uL (4.70-6.10); White Blood Count 7.44 K/ul (4.8-10.8)
[2023-02-24 08:27] LABS: BUN Creatinine Ratio 17.2 (10-20); Calcium 9.3 mg/dl (8.6-10.3); Chol HDL Ratio 3.8 (0-5); Est GFR (Non-African American) 74.2 ml/min; Potassium 4.1 mmol/L (3.5-5.1)
[2023-02-24 08:37] LABS: Estimated Average Glucose 117 mg/dl; Hemoglobin A1C 5.7 % (4.5-5.6)
[2023-02-24] MEDS ORDERED: ASPIRIN 81 MG ECTAB PO SCH (09:00)
[2023-02-24] MEDS ORDERED: METOPROLOL SUCC 50MG EXT REL TAB PO SCH (09:00)
[2023-02-24] MEDS ORDERED: STROKE PATIENT DISCHARGE STA (14:27)
--- NOTE | 2023-02-24 14:27 | Discharge Summary ---
Date of Service February 24, 2023 Admission HPI Per Admitting Provider Ariel is a 77yo male with PMH of HTN, HLD, and prostate cancer. He presents for worsening right eye blurriness, specifically in the right lower visual field, since 0800 yesterday morning. Blurriness has not changed over the past 24 hours. Patient saw his armored truck driver (Dr. Barrios) this morning, who dilated his R eye in the office; per patient, Dr. Felipe looked in the back of the eye and determined that something "broke off"; suspected retinal artery occlusion. No PMHx of CVA, UT, T2DM, A-fib, ENT surgeries, or vision loss. Hx of occasional headaches that are sinus / allergy-related; for which the patient takes 2 Excedrin tabs and symptoms usually improve in 15-20 minutes; chronic; last headache 7 days ago and was mild. Patient does not wear contact lenses or prescription glasses; occasionally uses reading glasses. No hx of recent head trauma, eye redness, or eye pain. He reports that he took his morning medications. No recent change in meds. He also reports using systane drops (artifical tears) daily for dry eye. BP mildly elevated at 154/94 on arrival; vitals otherwise stable. ED course: Ioversol 115mL IV Patient endorses R eye blurriness, which he characterizes as "ghosting" in the lower half of his eye. Patient denies recent fever, infections, HALL, right eye pain, right eye discomfort, right eye discharge, change in smell/taste/hearing, slurred speech, facial droop, dizziness, vertigo, CP, SOB, abdominal pain, N/V/D, or numbness or tingling in the extremities. Please see Dr. Good's attestation for any changes in treatment plan. Principal Diagnosis Right frontal lacunar CVA Discharge Exam General-alert and oriented x3, no fevers, no chills HEENT-head atraumatic and normocephalic, pupils equal and reactive to light, extraocular muscles intact Neck-no lymphadenopathy or thyromegaly, trachea midline Chest-clear to auscultation percussion. No rales wheezing or rhonchi Cardiac-regular rate and rhythm, normal S1 and S2 Abdomen-normal bowel sounds, nontender, no hepatosplenomegaly Extremities-no cyanosis, clubbing, or edema Neuro-cranial nerves II through XII intact, motor and sensory function within normal limits, strength symmetrical , no focal deficits Psych-normal affect, normal mood Discharge Data Allergies Allergy/AdvReac Type Severity Reaction Status Date / Time No Known Allergies Allergy Verified 01/07/23 12:56 Consultations 02/23/23 12:41 ED Decision to Admit Stat Ordered Studies 02/23/23 10:17 CT head/brain wo con Stat CTA head w con [CT angio head w con] Stat CTA neck with con [CT angio neck with con] Stat 02/23/23 14:25 MR brain wo con Routine Hospital Course (1) Blurred vision, right eye: Relations Mgr to raise the suspicion of a possible retinal detachment. He has an ophthalmologic goal examination later this week. He currently states his vision has improved since admission (2) Ischemic cerebrovascular accident (CVA): Ischemic right frontal lacunar CVA noted on MRI scan. Head and neck CTA negative. Aspirin has been added to simvastatin. OT and PT assessments will be completed before discharge. He has no motor deficits at this time (3) Hypertension: Acceptable. Continue metoprolol therapy (4) Hyperlipidemia: Stable. Continue simvastati Plan Home today, February 24, with home health services and continued speech therapy after OT and PT assessments completed Total Time Total Time Spent Total Time Spent (In Minutes): 45 minutes Discharge Plan Discharge Items Patient Disposition: Home - Home Health Services Reason For Visit: RETINAL ARTERY OCCLUSION Discharge Diagnosis: Ischemic right frontal CVA Activity: Resume your previous activity Non-emergency contact: Primary Care Provider Call non-emergency contact if: your symptoms worsen Follow-up/Referrals: Wes Olivia MD [Primary Care Provider] - Diet: Regular and Heart Healthy Addtl Attending Provider Instructions: Keep ophthalmology appointment later this week as scheduled Pending Studies at Discharge: No Stand-Alone Forms: My [email or web address], Smoking Cessation Medications and DC Order Prescriptions: New aspirin 81 mg Tablet,Delayed Release (Dr/Ec) 81 mg PO DAILY Qty: 1 0RF Continued simvastatin 20 mg tablet 20 mg PO QPM Qty: 90 3RF metoprolol succinate 50 mg tablet extended release 24 hr 50 mg PO DAILY Qty: 90 3RF Rx Instructions: 50 mg daily; multivitamin Tablet 1 tab PO DAILY fluorouracil [Efudex] 5 % Cream 1 applic TOPICAL DIRECTED PRN (Reason: Other) Rx Instructions: PT UNSURE OF STRENGTH, STARTED 06/17/20 FOR A 2 WEEK COURSE, PER PT "SKIN DROpal TOLD TO STOP USING OF 06/21/20". diphenhydramine HCl [Benadryl] 25 mg Capsule 50 mg PO DIRECTED PRN (Reason: Allergy Symptoms) Admission Data Admit Date/Time: 02/23/23 13:38 Attending Provider: Benjamin Paredes Admit Provider: Phillip Good Primary Care Provider: Wes Olivia Other Providers: Phillip Good Coding Level of Care Code 09202 INP/OBS DISCH >30 MIN Diagnoses Blurred vision, right eye H53.8 Ischemic cerebrovascular accident (CVA) I63.9 Hypertension I10 Hyperlipidemia E78.5
--- NOTE | 2023-02-24 14:38 | Pharmacy Report ---
- Date of Service February 24, 2023 - Pharmacy CVA/TIA Medication Review Medications to Prevent Stroke handout has been added to the patients discharge packet. Antiplatelet(s) * aspirin 81 mg PO daily Cholesterol * High intensity statin deferred due to PCP based on age of 77 and minimal symptoms on presentation * Continuing simvastatin 20 mg PO HS at this time DVT Prophylaxis * Enoxaparin SQ Therapeutic Anticoagulation * No history of Afib/Aflutter noted Type 2 Diabetes * Patient does not have T2DM
--- NOTE | 2023-02-24 18:05 | XCELERA ---
[id number] \\[id number]
--- OUTSIDE RECORDS SUMMARY | 2023-03-04 21:32 | External Medical Summary | Summary of Care ---
Author Name Unknown Organization [facility] Address [address] [place] [address] Phone [phone] Care Team Providers Care Heel Attacher Wood Name Role Phone Wes Olivia MD Primary Care Provider [phone] Reason for Visit * Reason Comments Skin Check Pt presents today fo r a 6 month recheck; denies any concerns at this time Encounter Details Date Type Department Care Team Description 09/25/2022 Office Visit Dermatology [facility] [address] [place] [address] Мария Bustillo MD [address] [place] [address] Actinic keratosis*; History of nonmelanoma skin cancer; Screening exam for skin cancer Allergies No known active allergiesdocumented as of this encounter (statuses as of 09/29/2022) Medications Medication Sig Dispensed Refills Start Date End Date Status ZOCOR 20 MG PO TABS one tab by mouth daily 0 Active MULTIVITAMINS PO TABS one a day 0 Act liss METOPROLOL XL TBCR 50 MG OR TAKE 1 TABLET DAILY. 11 04/03/2014 Active Polyethyl Glycol-Propyl Glycol 0.4-0.3 % Ophthalmic Solution Instill 1 Drop into both eyes as needed. 0 Active fluorouracil (EFUDEX) 5 % creamIndications:Acti eveline keratosis apply to forehead and temples daily x 2-4 weeks 40 g 0 08/06/2018 Active Fluorouracil 5 % External Cream (Efudex) Apply to forehead twice daily for 3 weeks 40 g 1 03/13/2022 Active Mupirocin 2 % External Ointment (Bactroban) Apply to wound on left ear daily 22 g 0 05/20/2022 Active documented as of this encounter (statuses as of 09/29/2022) Active Problems Problem Noted Date Squamous cell carcinoma of forehead 02/08 Overview: Squamous cell carcinoma, right forehead ADVANCE DIRECTIVE INFORMATION 12/20/2009 Overview: No, Advance Directive brochure offered , patient declined. SCC in situ on the left lower evangelical 201 0 12/20/2009 documented as of this encounter (statuses as of 09/29/2022) Social History Tobacco Use Types Packs/Day Years Used Date Smoking Tobacco: Never Smokeless Tobacco: Never Alcohol Use Standard Drinks/Week Comments Yes 0 (1 standard drink = 0.6 oz pur e alcohol) socially Sex Assigned at Date Recorded Not on file Job Start Date Occupation Industry Not on file Not on file Not on file documented as of this encounter Patient Instructions * Patient Instructions* Мария Bustillo MD - 09/25/2022 9:39 AM EDT Images from the original note were not included. SUNSCREEN USE AND SUN PROTECTION: 1. The best protection is sun avoidance. Seek shade if you can, especially between 9am to 5pm (pe[place] hours). 2. Use sunscreen with a Sun Protection Factor (SPF) of 30 or more that protects from Ultraviolet A (UVA) and Ultraviolet B (UVB) wavelength light. This is referred to as broad spectrum sun protection. Unfortunately, even though the protection is broad it is not complete, therefore making sun avoidance the best protection. UVB and UVA have both been implicated in causing skin cancers. Older sunscreens only protected from UVB and sunscreens with added UVA protection should contain Titanium dioxide, Zinc oxide, Mexoryl or Parsol 1789, also known as Avobenzone. 3. Use sun protection daily. Apply 20-30 minutes before going out and reapply every 2 hours. No sunscreen is truly water ''proof'' and it will wash away with sweat, swimming and rubbing. 4. Wear tightly woven, loose fitting (cooler) long sleeved clothing, UV-blocking clothing and sun glasses (eyes need protection as well) and wide-brimmed hatwear (no straw hats with holes because light still gets through). HOW TO CHECK YOUR MOLES: 1. Check moles every month and have a relative/friend check your back if possible. The use of a handheld mirror can help as well. The most common place for melanoma in women are the back and legs, and for men is the back. 2. Look for the ABCD's of melanoma: Asymmetry (strange shape - not round or oval), Borders (notched, scalloped or irregular edges), Color (very black or multi-colored), Diameter (size greater than 5mm or the size greater than a pencil eraser). 3. Changes in old moles and growths of new ones in relation to the ABCD's are the most important factors. 4. Some people have many moles that fit the ABCD criteria. At times the best thing is to look for the ''Ugly Duckling'' mole - the one that stands out the most. 5. If there are any questions on a mole please do not hesitate in calling our office at [phone] to have it evaluated. [place] Richard-Posay Sunscreen (Antihelios HALL Mineral SPF 30) - 5.5% Titanium Dioxide & 10% Zinc Oxide To SANTOS documented in this encounter Progress Notes * Мария Bustillo MD - 09/25/2022 9:23 AM EDT SUBJECTIVE: History of Present Illness: Ariel Parham is a 77 year old male seen today for follow up skin check. No lesions of concern. DERMATOLOGIC HISTORY: H/o skin cancer: numerousnonmelanoma skin cancers, including SCC left antihelix Mohs 2022, SCC left cheek Mohs 2022, BCC right evangelical mohs 2021, SCCIS left forehead inferior Mohs 2021, BCC on the left nasal dorsum 11/26, SCC on the right lateral cheek 08/27,SCC on the right medial cheek 05/28 and SCC in situ on the left evangelical 05/28-treated by Dr. Sanchez, BCC under the right eye 08/23 *Note- patient had an adverse reaction to efudex/calcipotriene (had to go to ED, eye swelled up, prefers not to use this compounded medication again) REVIEW OF SYSTEMS: SKIN: No other new or changing moles. HEME/LYMPH: No new or enlarging lumps or bumps. MEDICA TIONS: Current Outpatient Medications Medication Sig Dispense Refill ZOCOR 20 MG PO TABS one tab by mouth daily MULTIVITAMINS PO TABS one a day METOPROLOL XL TBCR 50 MG OR TAKE 1 TABLET DAILY. 11 Polyethyl Glycol-Propyl Glycol 0.4-0.3 % Ophthalmic Solution Instill 1 Drop into both eyes as needed. fluorouracil (EFUDEX) 5 % cream apply to forehead and temples daily x 2-4 weeks 40 g 0 Fluorouracil 5 % External Cream (Efudex) Apply to forehead twice daily for 3 weeks 40 g 1 Mupirocin 2 % External Ointment (Bactroban) Apply to wound on left ear daily 22 g 0 No current facility-administered medications for this visit. ALLERG IES: Patient has no known allergies. OBJECTIVE: GEN: Healthy, alert, no distress, appears oriented, pleasant and cooperative. SKIN: Detailed exam of hair, face including lids and lips, neck, back, chest, abdomen, buttocks, right and left upper extremities, right and left lower extremities including the nails and digits completed and are normal except: 1. Multiple thin pink papules and plaques with rough gritty scale located on the scalp, face, and bilateral ears ASSESS MENT/PLAN: 1. Actinic Keratoses distributed over the scalp, face, and bilateral ears - A total of 12 lesion(s) were treated with cryotherapy. - The patient was counseled on the premalignant nature of these lesions, and they were treated withcryotherapy today which the patient is agreeable to. The risks, benefits, indications, alternatives, and complications were discussed, and consent was obtained. - If no resolution in 3-4 weeks patient to notify clinic for re-evaluation *may consider PDT in the future, for now will manage AKs with cryotherapy, patient previously had an adverse reaction to efudex 2. History of nonmelanoma skin cancer/Skin cancer screening - Full skin check performed. No evidence of recurrence at previously treated sites of nonmelanoma skin cancer. - Discussed sunscreen/photoprotection. Informational handout reviewing sunscreen/photoprotection and self monitoring for melanoma was provided to patient at today's visit. - return in 6 months or sooner for any new or changing lesions of concern. Follow-up: 6 months The patient was encouraged to contact me with any further questions or concerns. Мария Bustillo MD 09/25/2022 documented in this encounter Nursing Notes * Jesusita Camejo LPN - 09/25/2022 9:21 AM EDT Chief Complaint Patient presents with Skin Check Pt presents today for a 6 month recheck; denies any concerns at this time Patient identified by name and date of . Do you have any concerns about pain management for today's visit? No Living Will or Advance Directive for Health Care as noted on problem list. [facility] is a way you can talk to your provider online through e-mail. Would you like to sign up? I can activate it for you? ALREADY ACTIVE documented in this encounter Plan of Treatment Upcoming Encounters Date Type Specialty Care Team Description 03/19/2023 Office Visit Dermatology Мария Bustillo MD [address] [place], [place] [id number] Health Maintenance Due Date Last Done Comments COVID-19 Vaccine (#1) 1945 Depression Screening, Annual for Pts 12 and Over 1959 Hepatitis C Screening 1965 Zoster Vaccines (1 of 2) 1997 Pneumococcal Vaccine: 65+ Ye ars (1 - PCV) 2012 DTaP,Tdap,and Td Vaccines (2 - Td or Tdap) 03/22/2022 03/22/2012 Influenza Vaccine (FLU shot) (Season Ended) 2023 GARDASIL-HPV IMMUNIZATION SERIES Aged Out No longer eligible based on patient's age to complete this topic Hepatitis B Aged Out No longer eligi ble based on patient's age to complete this topic MENINGOCOCCAL (MENACTRA/MENVEO) Aged Out No longer eligible based on patient's age to complete this topic documented as of this encounter Medical Devices Not on filedocumented as of this encounter Visit Diagnoses Diagnosis Actinic keratosis- Primary History of nonmelanoma skin cancer Personal history of other malignant neoplasm of skin Screening exam for skin cancer Screening for malignant neoplasm of the skin documented in this encounter Care Teams Heel Attacher Wood Relationship Specialty Start Date End Date Wes Olivia MD [address] [place] [address] PCP - General Pulmonary Diseases 10/03/16 documented as of this encounter
--- NOTE | 2023-04-13 10:19 | Coding Query ---
A supporting diagnosis is required for the test/procedure performed on this patient in order for us to be reimbursed by the patient's insurance. Please provide a supporting diagnosis for the following test/procedure listed below next to the test name along with your signature. *If there is no additional diagnosis for this patient that would support the following test/procedure please document that below next to the test/procedure. 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 [facility]
== END 2023-02-24 14:52 | disposition home health service (06) ==
LOC: EDINP 09:58 → ED 09:58 → SUATTDRO 13:38 → 2W 14:24

== ENCOUNTER 2023-02-26 11:22 | Observation (INO) ==
--- NOTE | 2023-02-26 12:51 | Emergency Department Note ---
Impression & Plan Recent cerebrovascular accident, Visual disturbance ED Provider Note NAME: LADY OSCAR AGE: 77 SEX: M : 1945 ARRIVES VIA: Walk-In INFORMANT: [Patient][family] ED PROVIDER(S): [Phil Zaidi MD] CHIEF COMPLAINT: Stroke symptoms HISTORY OF PRESENT ILLNESS: The patient is a 77-year-old male who was in the hospital recently for a stroke. He was discharged on the , 2 days ago. Patient was told that he had a right frontal stroke. He was placed on aspirin. Patient followed up today with a retinal specialist and there was concern for bilateral injury to his eyes and an embolic phenomenon was felt possible. The patient was referred to our ER for repeat hospitalization and further work- up. The patient states he has not noticed any new symptoms since he was in the hospital. There was a subtle visual change noted initially that prompted his work-up and hospitalization in the first place. He believes the visual disturbance has resolved. The patient denies current headache. He has not had difficulty thinking or with his speech. He has had no trouble with his balance or function of his arms. No chest pain. No fever. PMHx/PSHx: See Below SOCIAL HISTORY: See Below. PHYSICAL EXAM: GENERAL: Patient is in no acute distress. HEENT: No acute trauma, normocephalic atraumatic, mucous membranes moist, no nasal congestion. NECK: No stridor, no adenopathy, no meningismus, trachea is midline. LUNGS: Clear to auscultation bilaterally, no wheeze, no rhonchi, breath sounds equal. HEART: Without murmurs gallops or rubs, regular rate and rhythm. ABDOMEN: Soft, nontender, bowel sounds positive, no peritonitis. EXTREMITIES: No cyanosis or edema, full range of motion of all the joints without pain or difficulty, no signs for acute trauma. NEUROLOGIC: Oriented x 3, no acute motor or sensory deficits, no focal weakness. No speech slur or facial droop, excellent historian. No cerebellar dysfunction or extremity drift. SKIN: No rash, no jaundice, no diaphoresis. DIFFERENTIAL DIAGNOSIS: Embolic stroke, failed outpatient management, electrolyte imbalance, dysrhythmia, anemia, among others. EMERGENCY DEPARTMENT COURSE/PROCEDURES: Prior/Outside records reviewed: Retinal specialty notes, recent discharge summary. ECG per my interpretation: Indication was possible stroke. The ECG shows a normal sinus rhythm with a rate of 61. There is no ST elevation, no PVCs but the QTc is 428. Continuous Cardiac Monitoring per my interpretation: An order was placed for continuous cardiac monitoring. The monitor shows a rate of 60 with normal sinus rhythm. MEDICAL DECISION MAKING: There is no leukocytosis or concerning anemia. There is a normal platelet count. Sed rate and CRP are both somewhat elevated, this would be consistent with potential inflammation/ongoing infection. There was no electrolyte abnormality or renal failure. No concerning liver enzyme elevation. ECG showed a normal sinus rhythm, no ischemia. On exam, the patient did not have any focal neurologic findings. He was resting comfortably. I did order for a bilateral carotid ultrasound, this was requested by the retinal specialist. This result is pending. The patient will need a repeat hospitalization to have his findings further investigated. The retinal specialist felt that an embolic cause for his stroke and visual disturbance was likely. Repeat MRI, repeat cardiac echo were suggested by the retinal specialist. I spoke to the patient, his and son, I spoke with case management, the on- call hospitalist was consulted. DISPOSITION: Patient presentation and findings warrant a hospital stay. Past Med/Surg History Medical History Diverticulosis H/O Mohs micrographic surgery for skin cancer face Palpitation Septicemia Surgical History H/O colonoscopy (~2017) H/O hernia repair S/P tonsillectomy and adenoidectomy Family History Mother Hypertension Father Bladder cancer FH: kidney cancer Social History Smoking Status: Former smoker Hx Alcohol Use: Yes Hx Substance Use: No Preferred Language: Greenlandic Communication Ability: Effective Associate Scientist Required: No Beliefs That Will Affect Care: None marital status: Current Living Situation: Spouse current occupational status: retired Feels Safe at Home: Yes Allergies Allergies Allergy/AdvReac Type Severity Reaction Status Date / Time No Known Allergies Allergy Verified 02/26/23 13:44 Home Meds Home Medications Medication Instructions Recorded Confirmed diphenhydramine HCl 25 mg capsule 50 mg PO DIRECTED PRN Allergy 02/13/21 10/19/23 (Benadryl) Symptoms fluorouracil 5 % topical cream 1 applic topical DIRECTED PRN 06/23/20 02/26/23 (Efudex) Other multivitamin 1 tab PO DAILY 06/23/20 02/26/23 Previous Rx's Medication Instructions Recorded metoprolol succinate 50 mg 50 mg PO DAILY #90 tabs 01/07/23 tablet,extended release 24 hr simvastatin 20 mg tablet 20 mg PO QPM #90 tabs 01/07/23 aspirin 81 mg tablet,delayed 81 mg PO DAILY #1 tab 02/24/23 release Results & Data (ED) Vital Signs Vital Signs - 24 hr 02/26/23 11:27 02/26/23 12:40 02/26/23 12:40 Temperature 36.8 C Temperature Source Temporal Artery Scan Pulse Rate 62 Pulse Rate [Apical] 61 Pulse Rhythm Pulse Rhythm [Apical] Regular Pulse Strength [Apical] Normal Respiratory Rate 20 17 Respiratory Effort / Characteristics Non-Labored Spontaneous Non-Labored Spontaneous Respiratory Depth Normal Normal Respiratory Pattern Regular Blood Pressure 135/95 Blood Pressure [Right Arm] 126/94 Blood Pressure Mean 108 Blood Pressure Mean [Right Arm] 104 Blood Pressure Position [Right Arm] Semi-fowlers Pulse Oximetry 99 97 Oxygen Delivery Method Room Air Room Air Room Air Sepsis Recent Fever Within 48 Hours No Sepsis New/Unexplained Change in Mental Status No Sepsis Action Taken by Nursing No Action Required 02/26/23 12:45 02/26/23 13:00 Temperature Temperature Source Pulse Rate 60 58 L Pulse Rate [Apical] Pulse Rhythm Regular Pulse Rhythm [Apical] Pulse Strength [Apical] Respiratory Rate 17 Respiratory Effort / Characteristics Respiratory Depth Respiratory Pattern Blood Pressure Blood Pressure [Right Arm] Blood Pressure Mean Blood Pressure Mean [Right Arm] Blood Pressure Position [Right Arm] Pulse Oximetry 98 Oxygen Delivery Method Room Air Sepsis Recent Fever Within 48 Hours Sepsis New/Unexplained Change in Mental Status Sepsis Action Taken by Alf Medications Current Medication List: was personally reviewed by me Laboratory Data Attestation: I reviewed the patient's lab results. 02/26/23 11:49 02/26/23 11:49 Lab Results 02/26/23 02/26/23 02/26/23 Range/Units 11:49 11:49 11:49 WBC 10.06 (4.8-10.8) K/ul RBC 4.31 L (4.70-6.10) M/uL Hgb 15.1 (14.0-18.0) g/dl Hct 43.3 (42.0-52.0) % MCV 100.5 H (80.0-100.0) fL MCH 35.0 H (25.0-34.0) pg MCHC 34.9 (32.0-36.0) g/dL RDW Std Deviation 44.1 (36.4-46.3) fL RDW Coeff of Dana 11.9 (11.5-14.5) % Plt Count 230 (130-400) K/uL MPV 11.5 (9.4-12.4) fL Immature Gran % (Auto) 0.2 % Neut % (Auto) 65.0 % Lymph % (Auto) 22.5 % [place] % (Auto) 7.2 % Eos % (Auto) 4.1 % Baso % (Auto) 1.0 % Neut # (Auto) 6.55 H (1.40-6.50) K/uL Lymph # (Auto) 2.26 (1.20-3.40) K/uL [place] # (Auto) 0.72 H (0.11-0.59) K/uL Eos # (Auto) 0.41 (0.00-0.50) K/uL Baso # (Auto) 0.10 (0.00-0.20) K/uL Immature Gran # (Auto) 0.02 (0.01-0.20) K/uL ESR 48 H (0-20) mm/hr Sodium 137 (136-145) mmol/L Potassium 3.9 (3.5-5.1) mmol/L Chloride 103 (98-107) mmol/L Carbon Dioxide 26 (21-32) mmol/L Anion Gap 8 (3-11) BUN 21 (6-23) mg/dl Creatinine 1.16 (0.6-1.4) mg/dl Est Cr Clr Drug Dosing 64.0 ml/min Est GFR ( Amer) 71.0 ml/min Est GFR (Non-Af Amer) 61.3 ml/min BUN/Creatinine Ratio 18.1 (10-20) Glucose 91 (70-99(Fasting)) mg/dl Calcium 9.8 (8.6-10.3) mg/dl Magnesium 2.3 (1.7-2.4) mg/dl Total Bilirubin 0.6 (0.2-1.0) mg/dl AST 26 (13-39) U/L ALT 14 (7-52) U/L Alkaline Phosphatase 73 (34-104) U/L C-Reactive Protein 1.48 H (0-0.5) mg/dl Total Protein 7.9 (6.0-8.3) gm/dl Albumin 4.0 (3.4-5.0) gm/dl Globulin 3.9 (2.5-4.0) gm/dl Albumin/Globulin Ratio 1.0 (0.9-2) Discharge Plan Visit Data Chief Complaint: Stroke/CVA Symptoms Stated Complaint: DOC REF,STROKE EVAL, ED Provider: Phil Zaidi Discharge Problem: Recent cerebrovascular accident, Visual disturbance Patient Disposition: Admitted As Inpatient Condition: Good Forms Stand Alone Forms: [facility] Prescriptions Prescriptions: No Action simvastatin 20 mg tablet 20 mg PO QPM Qty: 90 3RF metoprolol succinate 50 mg tablet extended release 24 hr 50 mg PO DAILY Qty: 90 3RF Rx Instructions: 50 mg daily; multivitamin Tablet 1 tab PO DAILY fluorouracil [Efudex] 5 % Cream 1 applic TOPICAL DIRECTED PRN (Reason: Other) Rx Instructions: PT UNSURE OF STRENGTH, STARTED 06/17/20 FOR A 2 WEEK COURSE, PER PT "SKIN DR. TOLD TO STOP USING OF 06/21/20". diphenhydramine HCl [Benadryl] 25 mg Capsule 50 mg PO DIRECTED PRN (Reason: Allergy Symptoms) aspirin 81 mg Tablet,Delayed Release (Dr/Ec) 81 mg PO DAILY Qty: 1 0RF Referrals Referrals: Wes Olivia MD [Primary Care Provider] -
[2023-02-26 13:42] LABS: Eosinophils # (auto) 0.41 K/uL (0.00-0.50); Eosinophils % (auto) 4.1 %; Hematocrit (blood only) 43.3 % (42.0-52.0); Hemoglobin 15.1 g/dl (14.0-18.0); Immature Granulocytes # (auto) 0.02 K/uL (0.01-0.20); Immature Granulocytes % (auto) 0.2 %; Lymphocytes # (auto) 2.26 K/uL (1.20-3.40); Lymphocytes % (auto) 22.5 %; Mean Corpuscular Hgb Conc 34.9 g/dL (32.0-36.0); Mean Corpuscular Volume 100.5 fL (80.0-100.0); Mean Platelet Volume 11.5 fL (9.4-12.4); Monocytes # (auto) 0.72 K/uL (0.11-0.59); Monocytes % (auto) 7.2 %; Neutrophils # (auto) 6.55 K/uL (1.40-6.50); Platelet Count 230 K/uL (130-400); RDW Coefficient of Variation 11.9 % (11.5-14.5); RDW Standard Deviation 44.1 fL (36.4-46.3); Red Blood Count 4.31 M/uL (4.70-6.10); White Blood Count 10.06 K/ul (4.8-10.8)
--- NOTE | 2023-02-26 13:49 | History & Physical Report ---
Date of Service February 26, 2023 Assessment & Plan (1) Blurred vision, right eye: Plan: Clinically, visual disturbance has largely resolved Patient was at [facility] from 02/23 - 02/24 for a CVA workup: Brain MRI on 02/23: Ischemic right frontal lacunar CVA Echo w/ bubble study on 02/24/2023: no evidence of atrial septal defect Hemoglobin A1c 5.7 Lipid panel WNL No hx of A fib or CVA, per pt No fam hx of stroke or blood clots TSH WNL at 2.608 PT/INR WNL Carotid Doppler ultrasound, pending MRI Brain re-ordered, pending ESR elevated at 48 CRP elevated at 1.48 Continue aspirin [address] Caceres: Hypercoag panel ordered Cardio consulted for recommended a fib workup Neuro consulted re: second CVA workup Based on hx, recommend discussing long-term anticoag, such as Eliquis, upon discharge A.m. CBC, BMP (2) Recent cerebrovascular accident: Plan: Ischemic right frontal lacunar CVA noted on brain MRI scan on 02/23 Patient was discharged from [facility] on aspirin on 02/24 with no motor defects (3) Elevated troponin: Plan: Elevated troponin at 115.3 --> 111.5 Clinically, patient denies CP Continuous telemetry monitoring EKG pending (4) Hypertension: Plan: BP at 135/95 on arrival Continue metoprolol (5) Hyperlipidemia: Plan: Continue simvastatin Plan [facility]: [facility] Full code Regular diet VTE PPx: Lovenox History of Present Illness Chief Complaint: Referred by ophthalmology for embolic event workup / TIA / CVA Primary Care Provider: Wes Olivia MD Ariel is a 77-year-old male with PMH of HTN, HLD, and prostate cancer. He presents at the behest of the retinal specialist who had concern for new BRAO in the left eye based on images taken this morning on 02/26. Patient was recently discharged from [facility] on 02/24 for right inferior visual field blurriness. Brain MRI on 02/23 showed ischemic right frontal lacunar CVA. Patient was discharged on aspirin 81 mg daily, which patient reports he has been taking since discharge; last took this morning. He now presents again with no new symptoms. He denies confusion, slurred speech, facial droop or thought deficits. His right eye inferior field is still a little blurry, but less so than on Friday 02/23. He endorses a history of mild headaches, which he attributes to allergies/sinuses, but they have become less frequent and are often short; they tend to resolve on their own within 15 minutes; if they do not, the patient takes Excedrin and they resolve. Vital stable on arrival. No meds given in the ED Notes from retinal appointment this morning: Patient reports he saw Dr. Sofia Car this morning at [facility] in [place], who expressed concern for "new BRAO in the left eye that was not documented on the referral notes from the primary care visit on 02/23/2023". In the setting of multiple emboli present, they recommended a full work-up for now bilateral disease, and requested a carotid Doppler, echocardiogram, MRI brain, ESR/CRP, CBC, and EKG. They also requested a fax of the ED report to include the test results to [phone]. ROS: Patient denies speech or thought deficits, confusion, facial droop, HALL, proximal muscle weakness, tenderness of the temples, photophobia, fevers, infection, chest pain, chest palpitations, SOB, cough, abdominal pain, N/V/D, urinary symptoms, leg swell/pain, numbness or tingling in the UE/LEs. Patient denies hx of a fib or chest palpitations Patient has never worn a holter monitor Patient does not follow with a wind up operator No PMHx of IA, CVA, CHF, DM, PAD, vascular/heart surgeries, or eye surgeries No FMHx of stroke, blood clots, or bleeding disorders Please see Dr. Caceres's attestation for any changes to treatment plan. Allergies Allergy/AdvReac Type Severity Reaction Status Date / Time No Known Allergies Allergy Verified 02/26/23 13:44 Home Medications Medication Instructions Recorded Confirmed Type diphenhydramine HCl 25 mg capsule 50 mg PO DIRECTED PRN Allergy 06/23/20 02/26/23 History (Benadryl) Symptoms fluorouracil 5 % topical cream 1 applic topical DIRECTED PRN 06/23/20 02/26/23 History (Efudex) Other multivitamin 1 tab PO DAILY 06/23/20 02/26/23 History metoprolol succinate 50 mg 50 mg PO DAILY #90 tabs 01/07/23 02/26/23 Rx tablet,extended release 24 hr simvastatin 20 mg tablet 20 mg PO QPM #90 tabs 01/07/23 02/26/23 Rx aspirin 81 mg tablet,delayed 81 mg PO DAILY #1 tab 02/24/23 02/26/23 Rx release Past Med/Surg History Medical History Diverticulosis H/O Mohs micrographic surgery for skin cancer face Palpitation Septicemia Surgical History H/O colonoscopy (~2016) H/O hernia repair S/P tonsillectomy and adenoidectomy Family History Mother Hypertension Father Bladder cancer FH: kidney cancer Social History Smoking Status: Never smoker Hx Alcohol Use: Yes Hx Substance Use: No Preferred Language: Cameroonian Communication Ability: Effective Bag Turner Required: No Beliefs That Will Affect Care: None marital status: Current Living Situation: Spouse current occupational status: retired Feels Safe at Home: Yes Assistive Devices: None Review of Systems Review of Systems: See HPI above Physical Exam Physical Exam: General: patient appears in no acute distress; appears stated age; well- nourished; cooperative HEENT: normocephalic, atraumatic; no scleral icterus; PERRLA w/ EOMs intact; positive for mild right eye nystagmus; moist mucus membrane; trachea midline; vision and hearing grossly intact Skin: warm, dry without signs of tenting; no cyanosis; no rashes or lesions noted Cardiac: RRR; no murmurs noted Pulm: no acute respiratory distress; symmetrical chest expansion; clear breath sounds across all lung murillo without adventitious sounds Abdominal: Soft, nontender to palpation; BS present; no ascites; no distention MSK: no tics or fasciculations; +1 pitting edema noted in the LEs around the ankles b/l; pulses intact and symmetrical at radial, DP, and PT Neuro: A&Ox3; fluent speech; no tremors; no focal defects; no motor deficits; lasting room supervisor strength +5/5 b/l; UE/LE strength +5/5; sensation grossly intact; patient demonstrates the ability to wiggle toes Results & Data Results & Data Vital Signs (Past 12 Hours) Vital Signs Temp Pulse Pulse Resp BP BP Pulse Ox 02/26/23 13:00 58 L 02/26/23 12:45 60 17 98 02/26/23 12:40 61 17 126/94 97 02/26/23 12:40 02/26/23 11:27 36.8 C 62 20 135/95 99 O2 Del Method 02/26/23 13:00 02/26/23 12:45 Room Air 02/26/23 12:40 Room Air 02/26/23 12:40 Room Air 02/26/23 11:27 Room Air Laboratory Results Abnormal lab results 02/26/23 02/26/23 02/26/23 Range/Units 11:49 11:49 11:49 RBC 4.31 L (4.70-6.10) M/uL MCV 100.5 H (80.0-100.0) fL MCH 35.0 H (25.0-34.0) pg Neut # (Auto) 6.55 H (1.40-6.50) K/uL [place] # (Auto) 0.72 H (0.11-0.59) K/uL ESR 48 H (0-20) mm/hr Troponin I High Sens 115.3 H* (0-20) pg/ml C-Reactive Protein 1.48 H (0-0.5) mg/dl 02/26/23 Range/Units 14:28 RBC (4.70-6.10) M/uL MCV (80.0-100.0) fL MCH (25.0-34.0) pg Neut # (Auto) (1.40-6.50) K/uL [place] # (Auto) (0.11-0.59) K/uL ESR (0-20) mm/hr Troponin I High Sens 111.5 H* (0-20) pg/ml C-Reactive Protein (0-0.5) mg/dl Diagnostic Findings Carotid Doppler Study 02/26/23 12:38 ULTRASOUND OF THE CAROTID ARTERIES CLINICAL HISTORY: Strokelike symptoms. COMPARISON STUDY: CT angiogram of the neck dated 02/23/2023. TECHNIQUE: Real-time, grayscale, and color Doppler sonography of the carotid arteries is performed. Images are reviewed in the transverse and longitudinal planes. FINDINGS: The carotid arteries are patent bilaterally and demonstrate antegrade flow. There is minimal atherosclerotic plaque seen in the left carotid bulb. Normal doppler arterial waveforms are seen throughout. Velocity measurements are listed below. Common carotid peak systolic velocity (cm/sec): RIGHT: 61 LEFT: 49 ICA proximal peak systolic velocity (cm/sec): RIGHT: 31 LEFT: 39 ICA mid peak systolic velocity (cm/sec): RIGHT: 42 LEFT: 48 ICA distal peak systolic velocity (cm/sec): RIGHT: 44 LEFT: 47 ICA/CC peak systolic ratio: RIGHT: 0.7 LEFT: 110 Antegrade flow was shown in the vertebral arteries. The external carotid arteries are patent. IMPRESSION: 1. There is no sonographic evidence of hemodynamically significant stenosis in the right or left carotid arterial system. 2. Antegrade flow is shown in the vertebral arteries. ACT 112: Negative or not required by law. Electronically signed by: Phli Dubois M.D. 02/26/2023 5:44 PM Brain MRI 02/26/23 15:09 MRI OF THE BRAIN WITHOUT IV CONTRAST CLINICAL HISTORY: Stroke. COMPARISON STUDY: MRI of the brain dated 02/23/2023. TECHNIQUE: MRI of the brain was performed utilizing various T1 and T2-weighted sequences in the axial, sagittal, and coronal planes. IV contrast was not administered for this examination. FINDINGS: Brain parenchyma: A 7 mm focus of restricted diffusion in the right frontal lobe seen on image #15 is unchanged from 02/23/2023 and consistent with a tiny subacute infarct. No additional foci of restricted diffusion are identified. There is no hemorrhage or mass effect. Martinez-white matter differentiation is preserved. There is age-related involutional change noting minimal micro angiopathic disease. No extra-axial fluid collection is seen. The cerebellar tonsils are normal in configuration. Ventricles, sulci, and cisterns: Prominent secondary to involutional change. Pituitary and sella: Unremarkable. Intracranial vasculature: Normal flow voids are maintained at the skull base. Orbits: The bony orbits are grossly intact. Orbital contents are normal in appearance. Sinuses and mastoids: Clear. Calvarium: Unremarkable. Cervical cord: Partially visualized cervical spinal cord is normal in morphology and signal intensity. IMPRESSION: 1. A subacute subcentimeter infarct in the right frontal lobe has not significantly changed from 02/23/2023. 2. No additional foci of acute ischemia identified. 3. There is no hemorrhage or mass effect. ACT 112: Negative or not required by law. Electronically signed by: Phil Dubois M.D. 02/26/2023 6:59 PM Code Status & VTE Plan Code Status Full code VTE Prophylaxis Plan VTE Prophylaxis will be ordered: Yes Supervising Physician Co-Signing Physician Notes Attending addendum: I have physically seen this patient, have supervised the JERRI's activities, and agree with the H&P unless as otherwise noted. Assessment and Plan: Blurred vision right eye- Admit to telemetry for heart rhythm monitoring Patient referred to the emergency department by retina specialist due to concerns regarding new findings in left eye Brain MRI from 02/23/2023 showed an ischemic right frontal lacunar CVA Echocardiogram with bubble study on 02/24/[address] head, CTA head and neck were negative at that time as well We will order MRI brain for comparison to 02/23 Sed rate minimally elevated at 48 Patient continue aspirin 81 mg daily Order hypercoagulable panel Order cardiology consult for question of AYAD and or continuous monitoring set up Consult neurology with concerns regarding new intraocular findings Patient himself reports no new symptoms since previous work-up Hypertension- Reasonably well-controlled, continue metoprolol Hyperlipidemia- Continue high-dose statin simvastatin PG Care Time/CCT Total # of Minutes Spent Total Time Spent with Patient: Total time spent is greater than 50% in coordination of care (as documented) at patient's floor/unit and/or counseling patient: [place] [id number] INT INP/OBS CARE 2/55MIN Patient Type Established Medical Decision Making Moderate Complexity Diagnoses Blurred vision, right eye H53.8 Recent cerebrovascular accident Z86.73 Elevated troponin R79.89 Hypertension I10 Hyperlipidemia E78.5
[2023-02-26 13:54] LABS: BUN Creatinine Ratio 18.1 (10-20); Bilirubin,Total 0.6 mg/dl (0.2-1.0); C Reactive Protein 1.48 mg/dl (0-0.5); Calcium 9.8 mg/dl (8.6-10.3); Est GFR (Non-African American) 61.3 ml/min; Globulin 3.9 gm/dl (2.5-4.0); Magnesium 2.3 mg/dl (1.7-2.4); Potassium 3.9 mmol/L (3.5-5.1); Total Protein 7.9 gm/dl (6.0-8.3)
[2023-02-26 14:08] LABS: Thyroid Stimulating Hormone 2.608 uIu/ml (0.300-4.500)
[2023-02-26 14:10] LABS: Troponin I High Sensitivity 115.3 pg/ml (0-20)
[2023-02-26 15:15] LABS: Partial Thromboplastin Time 27.3 Seconds (21.0-31.0); Prothrombin Time 11.2 Seconds (9.0-12.0)
--- NOTE | 2023-02-26 16:54 | Cardiology Consultation ---
Date of Consultation February 26, 2023 Assessment & Plan (1) Ischemic cerebrovascular accident (CVA): Bilateral retinal artery occlusions as well as a frontal infarct likely occurring simultaneously strongly suggestive of embolic phenomenon, likely cardioembolic. Even in the absence of direct evidence for atrial fibrillation, would presume intermittent atrial fibrillation as most likely etiology for cardioembolic event in this demographic (77-year-old man). Given the recency of his neurologic event and the possibility of remaining thrombus (which could be difficult to detect even with transesophageal echocardiogram) as well as the possibility of recurrent atrial fibrillation, would recommend at least near term anticoagulation. He has no history of bleeding issues or renal dysfunction and is of average weight, therefore full dose apixaban 5 mg twice daily would be appropriate. He did have a bubble study on his recent echocardiogram which showed no evidence of intracardiac shunting. 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 Risk bleeding on dual therapy with apixaban and aspirin is higher in this demographic, but given uncertainty regarding etiology of CVA/retinal occlusions could continue aspirin 81 mg daily short-term. Since the benefit of aspirin after TIA/CVA is predominantly during the first 90 days, could discontinue aspirin after this time and continue apixaban. However, I would defer to neurology on importance/timing of aspirin use. Recommend ambulatory cardiac monitoring (MCOT) as outpatient to further evaluate the possibility of paroxysmal atrial fibrillation and determine whether long- term anticoagulation is merited. Even if the MCOT monitor shows no dysrhythmia, likely would continue anticoagulation for 6 to [address]able loop recorder to monitor for more occasional episodes of atrial fibrillation. After 6 or 12 months, if no evidence of dysrhythmia could reevaluate whether longer-term anticoagulation is warranted. I would be glad to see the patient in follow-up in 1 to 2 months (allowing time for MCOT review). (2) Elevated troponin: Minor troponin elevation with flat curve is nonspecific, possibly demand ischemia secondary to episodic hypertension. ECG and echocardiogram benign. No further cardiac work-up in the absence of cardiac symptoms. (3) Hypertension: BP reasonable, particularly allowing for some permissive hypertension post CVA. Continue beta-buddy for blood pressure control, maintenance therapy for his benign atrial and ventricular ectopy, and to help prevent/rate control atrial fibrillation should it occur. Did recommend he obtain a pulse oximeter or other means of measuring his heart rate at home, if he notes sudden elevation could evaluate for atrial fibrillation at that time (although likely he will be monitored via MCOT or implantable loop recorder for quite a while). (4) Hyperlipidemia: He does have vascular risk factors (age, gender, microvascular disease on MRI, hypertension, dyslipidemia) but the multiple locations weigh against the current neurologic event being secondary to atherosclerosis. Recent LDL was 57, continue statin indefinitely, consider changing to atorvastatin to minimize drug interactions. History of Present Illness Reason for Consultation: Evaluate cardiac etiology for embolic CVA Requesting Physician: Fortino Caceres MD Attending Physician: Fortino Caceres MD History of Present Illness 77-year-old man with history of benign atrial and ventricular ectopy, dyslipidemia, hypertension, and treated prostate cancer (brachytherapy) who was admitted 02/23/2023 with visual defect and found to have retinal artery occlusion on the right and subacute right frontal lobe lacunar infarct on MRI, he was placed on aspirin and discharged home 2 days ago, today he saw a retinal specialist who found a left eye retinal occlusion raising concern of cardioembolic event and prompting readmission. He has a fairly unremarkable cardiac history, with a 2012 evaluation of palpitations finding only sinus rhythm with sporadic atrial and ventricular ectopy. No history of atrial fibrillation or other dysrhythmias and no documented vascular disease. Of note, he was also hospitalized overnight in 2012 for neurologic symptoms, he had left hand and face numbness suspicious for TIA, work-up with brain CT/MRI/MRA and carotid ultrasound was unremarkable. During the hospitalization earlier this week MRI showed "Acute to subacute appearing right frontal lobe subcentimeter lacunar infarct". Head CT and neck CTA were unremarkable. ECG showed sinus rhythm at 62 bpm and was completely unremarkable. Echocardiogram showed normal LV structure and function, grade 1 diastolic dysfunction, mild AI/mild to moderate MR/moderately dilated LA/normal RVSP. His original complaint was blurriness right eye, he has not had any new symptoms, rather readmission was prompted by concern of the retinal specialist identifying the high likelihood his event was embolic rather than thrombotic. Patient denies any chest pain, dyspnea, or subjective palpitations. He had no somatic complaints at the time of my evaluation this afternoon. Allergies Allergy/AdvReac Type Severity Reaction Status Date / Time No Known Allergies Allergy Verified 02/26/23 13:44 Home Medications Medication Instructions Recorded Confirmed Type diphenhydramine HCl 25 mg capsule 50 mg PO DIRECTED PRN Allergy 06/23/20 02/26/23 History (Benadryl) Symptoms fluorouracil 5 % topical cream 1 applic topical DIRECTED PRN 06/23/20 02/26/23 History (Efudex) Other multivitamin 1 tab PO DAILY 06/23/20 02/26/23 History metoprolol succinate 50 mg 50 mg PO DAILY #90 tabs 01/07/23 02/26/23 Rx tablet,extended release 24 hr simvastatin 20 mg tablet 20 mg PO QPM #90 tabs 01/07/23 02/26/23 Rx aspirin 81 mg tablet,delayed 81 mg PO DAILY #1 tab 02/24/23 02/26/23 Rx release Patient History Medical History Diverticulosis H/O Mohs micrographic surgery for skin cancer face Palpitation Septicemia Surgical History H/O colonoscopy (~2016) H/O hernia repair S/P tonsillectomy and adenoidectomy Family History Mother Hypertension Father Bladder cancer FH: kidney cancer Social History Smoking Status: Former smoker Hx Alcohol Use: Yes Hx Substance Use: No Preferred Language: Kiswahili Communication Ability: Effective 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 BP mildly hypertensive (153/68 mmHg). Pulse 60 bpm and regular. Skin: no ecchymoses or generalized lesions. HEENT: unremarkable. Neck: JVP at the clavicle at 90 degrees, no carotid bruits. Lungs: clear. Cardiac: regular rhythm, normal S1-2, 2/6 apical holosystolic murmur, no diastolic murmur. Abdomen: benign. Extremities: no edema, pulses intact. Neurologic: normal affect and conversation, grossly nonfocal. Results & Data Laboratory Results High-sensitivity troponin 115 and 111. Normal electrolytes, BUN 21, creatinine 1.16. Diagnostic Findings Multiple brain imaging studies, ECG, and echocardiogram as noted in HPI. Chest x-ray unremarkable. PG Care Time/CCT Total # of Minutes Spent Total Time Spent with Patient: Total time spent is greater than 50% in coordination of care (as documented) at patient's floor/unit and/or counseling patient: Coding Level of Care Code 80901 INT INP/OBS CARE 3/75MIN Diagnoses Ischemic cerebrovascular accident (CVA) I63.9 Elevated troponin R79.89 Hypertension I10 Hyperlipidemia E78.5
--- NOTE | 2023-02-26 17:46 | Ultrasound Report ---
ULTRASOUND OF THE CAROTID ARTERIES CLINICAL HISTORY: Strokelike symptoms. COMPARISON STUDY: CT angiogram of the neck dated 02/23/2023. TECHNIQUE: Real-time, grayscale, and color Doppler sonography of the carotid arteries is performed. I mages are reviewed in the transverse and longitudinal planes. FINDINGS: The carotid arteries are patent bilaterally and demonstrate antegrade flow. There is minimal atherosc lerotic plaque seen in the left carotid bulb. Normal doppler arterial waveforms are seen throughout. Velocity measurements are listed below. Common carotid peak systolic velocity (cm/sec): RIGHT: 61 LEFT: 49 ICA proximal peak systolic velocity (cm/sec): RIGHT: 31 LEFT: 39 ICA mid peak systolic velocity (cm/sec): RIGHT: 42 LEFT: 48 ICA distal peak systolic velocity (cm/sec): RIGHT: 44 LEFT: 47 ICA/CC peak systolic ratio: RIGHT: 0.7 LEFT: 110 Antegrade flow was shown in the vertebral arteries. The external carotid arteries are patent. IMPRESSION: 1. There is no sonographic evidence of hemodynamically significant stenosis in the right or left hector tid arterial system. 2. Antegrade flow is shown in the vertebral arteries. ACT 112: Negative or not required by law. Electronically signed by: Phil Dubois M.D. 02/26/2023 5:44 PM
[2023-02-26] MEDS ORDERED: ACETAMINOPHEN 325 MG TAB PO PRN (18:02)
[2023-02-26] MEDS ORDERED: diphenhydrAMINE Capsule 25 MG CAP PO PRN (18:02)
[2023-02-26] MEDS ORDERED: FLUOROURACIL 5% TOP PRN (18:02)
--- NOTE | 2023-02-26 19:01 | Magnetic Resonance Report ---
MRI OF THE BRAIN WITHOUT IV CONTRAST CLINICAL HISTORY: Stroke. COMPARISON STUDY: MRI of the brain dated 02/23/2023. TECHNIQUE: MRI of the brain was performed utilizing various T1 and T2-weighted sequences in the axial , sagittal, and coronal planes. IV contrast was not administered for this examination. FINDINGS: Brain parenchyma: A 7 mm focus of restricted diffusion in the right frontal lobe seen on image #15 is unchanged from 02/23/2023 and consistent with a tiny subacute infarct. No additional foci of restric mary diffusion are identified. There is no hemorrhage or mass effect. Martinez-white matter differentiatio n is preserved. There is age-related involutional change noting minimal microangiopathic disease. No extra-axial fluid collection is seen. The cerebellar tonsils are normal in configuration. Ventricles, sulci, and cisterns: Prominent secondary to involutional change. Pituitary and sella: Unremarkable. Intracranial vasculature: Normal flow voids are maintained at the skull base. Orbits: The bony orbits are grossly intact. Orbital contents are normal in appearance. Sinuses and mastoids: Clear. Calvarium: Unremarkable. Cervical cord: Partially visualized cervical spinal cord is normal in morphology and signal intensity . IMPRESSION: 1. A subacute subcentimeter infarct in the right frontal lobe has not significantly changed from 02/08. 2. No additional foci of acute ischemia identified. 3. There is no hemorrhage or mass effect. ACT 112: Negative or not required by law. Electronically signed by: Phil Dubois M.D. 02/26/2023 6:59 PM
[2023-02-26] MEDS ORDERED: ENOXAPARIN INJ 40 MG/0.4 ML SYR SQ SCH (21:00)
[2023-02-26] MEDS ORDERED: SIMVASTATIN 20 MG TAB PO SCH (21:00)
[2023-02-27] MEDS ORDERED: METOPROLOL SUCC 50MG EXT REL TAB PO SCH (09:00)
[2023-02-27] MEDS ORDERED: ASPIRIN 81 MG ECTAB PO SCH (09:00)
[2023-02-27 09:16] LABS: Basophils % (auto) 0.9 %; Eosinophils # (auto) 0.47 K/uL (0.00-0.50); Eosinophils % (auto) 4.4 %; Hematocrit (blood only) 43.1 % (42.0-52.0); Hemoglobin 15.1 g/dl (14.0-18.0); Immature Granulocytes # (auto) 0.06 K/uL (0.01-0.20); Immature Granulocytes % (auto) 0.6 %; Lymphocytes # (auto) 2.16 K/uL (1.20-3.40); Lymphocytes % (auto) 20.3 %; Mean Corpuscular Volume 99.8 fL (80.0-100.0); Mean Platelet Volume 11.2 fL (9.4-12.4); Monocytes % (auto) 4.7 %; Neutrophils # (auto) 7.35 K/uL (1.40-6.50); Neutrophils % (auto) 69.1 %; Platelet Count 228 K/uL (130-400); RDW Coefficient of Variation 11.8 % (11.5-14.5); Red Blood Count 4.32 M/uL (4.70-6.10); White Blood Count 10.64 K/ul (4.8-10.8)
--- NOTE | 2023-02-27 09:20 | Neurology Consultation ---
Date of Consultation February 27, 2023 Assessment & Plan (1) BRAO (branch retinal artery occlusion): (2) Recent cerebrovascular accident: Plan 77-year-old male with recent branch retinal artery occlusion affecting both eyes, recent right frontal lobe ischemic infarct, probable underlying cardioembolic etiology. No evidence of vascular lesion on CTA of the head and neck. The ischemic right frontal lobe infarct is asymptomatic. He does endorse inferior altitudinal vision disturbance to both eyes, but nothing that greatly impacts his visual field or visual acuity. He does not endorse headache, scalp tenderness, shoulder girdle myalgia, jaw claudication, or other symptoms s uggestive of polymyalgia rheumatica. He does have a modest nonspecific elevation in inflammatory markers. However, clinical presentation not suggestive of giant cell arteritis. Given the high likelihood of cardioembolic stroke, I agree with recommendation for apixaban as per cardiology consultation. Also agree with mobile cardiac outpatient telemetry with potential for implantable loop recorder. Would continue with aspirin 81 mg/day for 3 months, then discontinue, with intention to continue with Eliquis long-term. Continue with simvastatin, recent lipid panel suggest good lipid control. Current LDL 57, goal LDL 70 or less. Continue with metoprolol for hypertension. Current blood pressure acceptable. Follow-up with results of hypercoagulable panel although likelihood of underlying thrombophilic coagulation defect is low in this patient given his relatively advanced age and lack of previous thromboembolic events. Patient will need additional outpatient follow-up to assess his visual murillo. Patient does not require additional outpatient neurology follow-up. History of Present Illness Reason for Consultation: Branch retinal artery occlusion, stroke evaluation Requesting Physician: Twan Attending Physician: Humphrey Florez History of Present Illness The patient is a 77-year-old male who is recently discharged from the [facility] on February 24 for a stroke evaluation, he had presented on February 23 with a complaint of painless right eye vision loss, affecting the lower aspect of the visual field. He had seen his online trader, Dr. Barrios, who recommended a hospital assessment for stroke. He had a thorough evaluation at that time including CT angiography of the head and neck which were unremarkable, CT of the head that was negative for acute process, and a brain MRI that revealed a subacute to acute small ischemic right frontal lobe infarct as well as mild chronic microvascular ischemic disease. No hemorrhage or other wor risome process identified. An echocardiogram had revealed normal left ventricular function, EF 60 to 65%, the left atrium was moderately dilated. An ECG at that time revealed a normal sinus rhythm. He has a history of well- controlled dyslipidemia, on simvastatin. He is also prescribed metoprolol. At the time of discharge, aspirin was added to his regimen. He had a follow-up appointment with the retina specialist to identified bilateral, new branch retinal artery occlusion for the left eye as well prompting concern for additional embolic event. He was referred back to the hospital for additional evaluation. He had a repeat brain MRI that was essentially unchanged compared with the previous study. No hemorrhage or new areas of infarct identified within the brain. I did independently review these imaging studies. He also had a carotid ultrasound completed which was negative for stenotic lesion. He does have modestly elevated inflammatory markers, ESR, CRP. However, he does no t endorse headache, scalp tenderness, shoulder or hip girdle myalgia, or jaw claudication. No known history of polymyalgia rheumatica or other underlying autoimmune/inflammatory disease. Further, the patient has no prior history of stroke, TIA, or thromboembolic disease process. He does have a history of prostate cancer that has been treated, he follows with [facility] urology, felt to be doing well in this regard. Further, the patient denies any other specific or localizing neurologic symptoms. His primary complaint is vision loss affecting both eyes, although seems to be mild, affecting the inferior [id number]. No difficulty with visual acuity. No pain with eye movement. And again, no headache. Also, he denies any localized weakness. No hemiparesis, dysarthria, dysphagia or sensory dysfunction. No problems with gait or balance. Allergies Allergy/AdvReac Type Severity Reaction Status Date / Time No Known Allergies Allergy Verified 02/26/23 13:44 Home Medications Medication Instructions Recorded Confirmed Type diphenhydramine HCl 25 mg capsule 50 mg PO DIRECTED PRN Allergy 06/23/20 02/26/23 History (Benadryl) Symptoms fluorouracil 5 % topical cream 1 applic topical DIRECTED PRN 06/23/20 02/26/23 History (Efudex) Other multivitamin 1 tab PO DAILY 06/23/20 02/26/23 History metoprolol succinate 50 mg 50 mg PO DAILY #90 tabs 01/07/23 02/26/23 Rx tablet,extended release 24 hr simvastatin 20 mg tablet 20 mg PO QPM #90 tabs 01/07/23 02/26/23 Rx aspirin 81 mg tablet,delayed 81 mg PO DAILY #1 tab 02/24/23 02/26/23 Rx release Patient History Medical History Diverticulosis H/O Mohs micrographic surgery for skin cancer face Palpitation Septicemia Surgical History H/O colonoscopy (~2017) H/O hernia repair S/P tonsillectomy and adenoidectomy Family History Mother Hypertension Father Bladder cancer FH: kidney cancer Social History Smoking Status: Never smoker Hx Alcohol Use: Yes Hx Substance Use: No Preferred Language: Tajik Communication Ability: Effective 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 Required: No Beliefs That Will Affect Care: None marital status: Current Living Situation: Spouse current occupational status: retired Feels Safe at Home: Yes Assistive Devices: None Review of Systems Constitutional: no fever and no chills Eyes: as per Subjective / HPI and + blind spots; no diplopia, no eye pain and no photophobia Ear, Nose, Mouth, Throat: no hearing loss Respiratory: no cough and no dyspnea Cardiovascular: no chest pain and no palpitations Gastrointestinal: no nausea and no vomiting Genitourinary: no urinary incontinence Musculoskeletal: no neck pain and no myalgia Integumentary: no rash and no lesions Neurologic: as per Subjective / HPI; no gait abnormality, no unsteadiness, no localized weakness, no loss of sensation, no tremor(s), no syncope, no headache(s) and no confusion Psychiatric: no depression and no anxiety Hematologic / Lymphatic: no easy bleeding and no easy bruising Exam (Neuro) Constitutional: well developed and well nourished; no acute distress Eyes: normal visual murillo by confrontation, PERRL, normal accommodation and EOM intact bilaterally; no nystagmus Neurologic: Oriented to:: Person, Place and Time Memory: Short Term Intact and Remote Intact Attention: Span Intact and Concentration Intact Language: Naming Objects and Repeating Phrases Speech Fluency: negative Dysarthria Speech Aphasia: negative Aphasia Fund of Knowledge: Current Events, Past History and Vocabulary Cranial Nerves: Normal II (Visual murillo full to confrontation, visual acuity normal), III, IV, (Pupils equal round reactive to light and accommodation, eye movements normal), V (Facial sensation intact), VII (There is no facial droop or weakness), VIII (Hearing intact), IX, X (Palate elevates to midline), XI (Shoulder shrug intact) and XII (Tongue protrudes to midline) Motor Strength: Normal Lower Extremities and Normal Upper Extremities; negative Pronator Drift Motor Tone: Normal Lower Extremities and Normal Upper Extremities Muscle Bulk/Involuntary Movements: No Involuntary Movements; negative Muscle Atrophy Sensation: Light Touch Intact, Pain/Temperature Intact, Vibration Intact and Proprioception Intact Coordination: Normal; negative Limited Balance, Dysdiadochokinesia, Finger-Nose Abnormal or Heel-Quinteros Abnormal Deep Tendon Reflexes: Rt Triceps: 2+, Lt Triceps: 2+, Rt Biceps: 2+, Lt Biceps: 2+, Rt Brachioradialis: 2+, Lt Brachioradialis: 2+, Rt Patellar: 2+, Lt Patellar: 2+, Rt Ankle: 2+ and Lt Ankle: 2+ Special Tests: negative Babinski Present Gait: Normal Station and Gait Results & Data Vital Signs (Past 12 Hours) Vital Signs Temp Pulse Pulse Resp BP Pulse Ox O2 Del Method 02/27/23 08:03 36.6 C 54 L 16 146/76 H 98 Room Air 02/27/23 03:32 36.7 C 58 L 16 126/71 98 Room Air 02/27/23 00:05 36.7 C 60 18 115/72 98 Room Air 02/27/23 00:01 72 02/26/23 22:39 56 L Laboratory Results WBC 10.06, hemoglobin 15.1 hematocrit 43.3, platelet count 230, ESR 48, sodium 137, potassium 3.9, BUN 21, creatinine 1.16, glucose 91, calcium 9.8, magnesium 2.3, AST 26, ALT 14, high-sensitivity troponin 111.5, CRP 1.48, triglycerides 89, cholesterol 102, LDL 57, HDL 27, TSH 2.608. Hypercoagulable panel pending. Diagnostic Findings MRI, CTA, as described in the HPI, I independently reviewed these images. Echocardiogram and ECG are as described in the HPI. Coding Level of Care Code 55299 INT INP/OBS CARE 3/75MIN Diagnoses BRAO (branch retinal artery occlusion) H34.239 Recent cerebrovascular accident Z86.73 Time Spent (min) 80
[2023-02-27 09:38] LABS: BUN Creatinine Ratio 23.1 (10-20); Calcium 9.7 mg/dl (8.6-10.3); Creatinine Clr Calc Pharmacy 71.4 ml/min; Est GFR (Non-African American) 69.9 ml/min; Potassium 4.2 mmol/L (3.5-5.1)
--- NOTE | 2023-02-27 11:42 | Billing Data ---
Date of Service February 27, 2023 Coding Level of Care Code 35757 INT INP/OBS CARE
--- NOTE | 2023-02-27 14:58 | Discharge Summary ---
Date of Service February 27, 2023 Admission HPI Per Admitting Provider Ariel is a 77-year-old male with PMH of HTN, HLD, and prostate cancer. He presents at the behest of the retinal specialist who had concern for new BRAO in the left eye based on images taken this morning on 02/26. Patient was recently discharged from [facility] on 02/24 for right inferior visual field blurriness. Brain MRI on 02/23 showed ischemic right frontal lacunar CVA. Patient was discharged on aspirin 81 mg daily, which patient reports he has been taking since discharge; last took this morning. He now presents again with no new symptoms. He denies confusion, slurred speech, facial droop or thought defic its. His right eye inferior field is still a little blurry, but less so than on Friday 02/23. He endorses a history of mild headaches, which he attributes to allergies/sinuses, but they have become less frequent and are often short; they tend to resolve on their own within 15 minutes; if they do not, the patient takes Excedrin and they resolve. Vital stable on arrival. No meds given in the ED Notes from retinal appointment this morning: Patient reports he saw Dr. Sofia Car this morning at [facility] in [place], who expressed concern for "new BRAO in the left eye that was not documented on the referral notes from the primary care visit on 02/23/2023". In the setting of multiple emboli present, they recommended a full work-up for now bilateral disease, and requested a carotid Doppler, echocardiogram, MRI brain, ESR/CRP, CBC, and EKG. They also requested a fax of the ED report to include the test results to [phone]. ROS: Patient denies speech or thought deficits, confusion, facial droop, HALL, proximal muscle weakness, tenderness of the temples, photophobia, fevers, infection, chest pain, chest palpitations, SOB, cough, abdominal pain, N/V/D, urinary symptoms, leg swell/pain, numbness or tingling in the UE/LEs. 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 Caceres's attestation for any changes to treatment plan. Principal Diagnosis blurred vision of right eye Discharge Exam General: patient appears in no acute distress; HEENT: normocephalic, atraumatic; Skin: warm, dry without signs of tenting Cardiac: RRR; no murmurs noted Pulm: no acute respiratory distress; Abdominal: Soft, nontender to palpation; BS present; no ascites; no distention Neuro: A&Ox3; Discharge Data Allergies Allergy/AdvReac Type Severity Reaction Status Date / Time No Known Allergies Allergy Verified 02/26/23 13:44 Consultations 02/26/23 14:45 ED Decision to Admit Stat 02/26/23 18:02 Consult Cardiology Routine Consult Neurology Routine Ordered Studies 02/26/23 12:38 US carotid doppler BI Stat 02/26/23 15:09 MRI Brain [MR brain wo con] Urgent Hospital Course (1) Blurred vision, right eye: Clinically, visual disturbance has largely resolved Patient was at [facility] from 02/23 - 02/24 for a CVA workup: Brain MRI on 02/23: Ischemic right frontal lacunar CVA Echo w/ bubble study on 02/24/2023: no evidence of atrial septal defect Hemoglobin A1c 5.7 Lipid panel WNL No hx of A fib or CVA, per pt No fam hx of stroke or blood clots TSH WNL at 2.608 PT/INR WNL Carotid Doppler ultrasound was negative MRI Brain re-ordered: was negative for new stroke ESR elevated at 48 CRP elevated at 1.48 Continue aspirin [address] Caceres: Hypercoag panel ordered Cardio consulted for recommended a fib workup: will obtain a MCOT as an outpatient. Neuro consulted. Based on hx, recommend discussing long-term anticoag, such as Eliquis, upon discharge Elquis started prior to discharge. (2) Recent cerebrovascular accident: Ischemic right frontal lacunar CVA noted on brain MRI scan on 02/23 Patient was discharged from [facility] on aspirin on 02/24 with no motor defects (3) Elevated troponin: Elevated troponin at 115.3 --> 111.5 Clinically, patient denies CP Continuous telemetry monitoring (4) Hypertension: BP at 135/95 on arrival Continue metoprolol (5) Hyperlipidemia: Continue simvastatin Total Time Total Time Spent Total Time Spent (In Minutes): 32 Discharge Plan Discharge Items Patient Disposition: Home - Self-Care Reason For Visit: CVA WORKUP Discharge Diagnosis: CVA workup Condition on Discharge: Good Activity: Resume your previous activity Non-emergency contact: Primary Care Provider Call non-emergency contact if: you have any medication questions Follow-up/Referrals: Wes Olivia MD [Primary Care Provider] - 03/06/23 3:00 pm Diet: Regular Addtl Attending Provider Instructions: Cardiology will set up an ambulatory narrow fabrics weaver (MCOT) as an outpatient to further evaluate the possibility of paroxysmal atrial fibrillation and determine whether long-term blood thinning medication is warranted. We will recommend you take your first dose of Eliquis now before discharge and take your first home dose first thing in the morning. Will recommend followup with Dr. Carter in 1-2 months. Pending Studies at Discharge: No Stand-Alone Forms: My [employer], Smoking Cessation Medications and DC Order Prescriptions: New Eliquis 5 mg tablet 5 mg PO BID Qty: 60 0RF Rx Instructions: take first dose in AM of 02/28 Continued simvastatin 20 mg tablet 20 mg PO QPM Qty: 90 3RF metoprolol succinate 50 mg tablet extended release 24 hr 50 mg PO DAILY Qty: 90 3RF Rx Instructions: 50 mg daily; multivitamin Tablet 1 tab PO DAILY fluorouracil [Efudex] 5 % Cream 1 applic TOPICAL DIRECTED PRN (Reason: Other) Rx Instructions: PT UNSURE OF STRENGTH, STARTED 06/17/20 FOR A 2 WEEK COURSE, PER PT "SKIN DROpal TOLD TO STOP USING OF 06/21/20". diphenhydramine HCl [Benadryl] 25 mg Capsule 50 mg PO DIRECTED PRN (Reason: Allergy Symptoms) aspirin 81 mg Tablet,Delayed Release (Dr/Ec) 81 mg PO DAILY Qty: 1 0RF Discharge Orders: Discharge Order (Routine); Ordered 02/27/23 Ordered By: Humphrey Florez Admission Data Admit Date/Time: 02/26/23 14:06 Attending Provider: Humphrey Florez Admit Provider: Fortino Caceres Primary Care Provider: Wes Olivia Other Providers: Fortino Caceres ; Arnulfo Carter ; Yusuf Seay Other Interventions: Discharge Summary Assessment (RN) Last Done: 02/27/23 14:47 Coding Level of Care Code 95459 INP/OBS DISCH >30 MIN Diagnoses Blurred vision, right eye H53.8 Recent cerebrovascular accident Z86.73 Elevated troponin R79.89 Hypertension I10 Hyperlipidemia E78.5
[2023-02-27] MEDS ORDERED: APIXABAN 5 MG TABLET PO SCH (21:00)
--- NOTE | 2023-02-28 07:01 | Electrocardiogram Report ---
Test Reason : Blood Pressure : / mmHG Vent. Rate : 061 BPM Atrial Rate : 061 BPM P-R Int : 132 ms QRS Dur : 090 ms QT Int : 426 ms P-R-T Axes : 032 014 042 degrees QTc Int : 428 ms Normal sinus rhythm Normal ECG When compared with ECG of 23-FEB-2023 11:15, No significant change was found Confirmed by Zac Jackman ([id number]) on 02/28/2023 7:01:13 AM Referred By: REFERRED SELF Confirmed By:Zac Jackman
[2023-03-03 02:12] LABS: Anti Cardiolipin Ab IgG <2.0 GPL-U/mL; Anti Cardiolipin Ab IgM <2.0 MPL-U/mL; Protein S Functional(Activity) 80 % normal (70-150)
[2023-03-05 08:47] LABS: B2 Glycoprotein IgG <2.0 U/mL (<20.0); B2 Glycoprotein IgM <2.0 U/mL (<20.0); PTT LA Screen 39 sec (<=40)
== END 2023-02-27 16:28 | disposition home or self-care (01) ==
LOC: 2N 11:22 → ED 11:22 → SUATTDRO 14:06 → 2N 17:31